=== PATIENT | male | born 1975 | race Caucasian/White ===

== ENCOUNTER 2016-10-23 19:55 | Emergency (ER) | payer MEDICARE, OTHER ==
[~2016-10-23] VITALS: Ht 188 cm; Wt 84.1 kg
[~2016-10-23 19:55] MED LIST: DIVA500T52 PO; QUET50XR PO
[2016-10-23] MEDS ORDERED: CEPHALEXIN MONOHYDRATE 500 MG CAPSULE PO ONE (20:30)
[2016-10-23] MEDS ORDERED: POVIDONE-IODINE 15 ML SOLUTION UD TP ONE (20:30)
[2016-10-23 21:22] VITALS: BP 134/85
== END 2016-10-23 21:56 | disposition home or self-care (01) ==
LOC: EMS 19:57
DX: L08.9 Local infection of the skin and subcutaneous tissue, unspecified (principal); F31.9 Bipolar disorder, unspecified; I10 Essential (primary) hypertension; F20.9 Schizophrenia, unspecified
CPT/HCPCS: 99283

== ENCOUNTER 2016-10-30 10:32 | Emergency (ER) | payer MEDICARE, OTHER ==
[~2016-10-30] VITALS: Ht 182.9 cm; Wt 75.0 kg
[~2016-10-30 10:32] MED LIST changes: -QUET50XR PO
[2016-10-30] MEDS ORDERED: ANTIBIOTIC PO (11:05)
[2016-10-30 14:35] LABS: BASOPHILS % (AUTO) 1.2 % (0.0-2.0); EOSINOPHILS % (AUTO) 3.1 % (1.0-6.0); HEMOGLOBIN 13.1 g/dL (13.5-17.5); LYMPHOCYTES # (AUTO) 1.3 K/uL (1.0-4.8); MEAN CORPUSCULAR HGB CONC 32.7 G/dL (31.0-37.0); MEAN CORPUSCULAR VOLUME 98 fL (80-100); MONOCYTES # (AUTO) 0.4 K/uL (0.1-1.0); MONOCYTES % (AUTO) 5.8 % (2.0-9.0); NEUTROPHILS # (AUTO) 5.4 K/uL (1.8-7.7); NEUTROPHILS % (AUTO) 72.9 % (40.0-70.0); PLATELET COUNT (AUTO) 323 K/uL (150-450); RED BLOOD CELL COUNT(AUTO) 4.09 MIL/uL (4.50-5.90); RED CELL DISTRIBUTION WIDTH 13.9 % (11.5-14.5); WHITE BLOOD COUNT (AUTO) 7.4 K/uL (4.5-11.0)
[2016-10-30] MEDS ORDERED: CefTRIAXone SODIUM 1 GM/VIAL IM ONE (14:45)
[2016-10-30] MEDS ORDERED: LIDOCAINE HCL/PF 1% 2 ML VIAL IM ONE (14:45)
[2016-10-30 15:34] VITALS: BP 130/75
== END 2016-10-30 15:37 | disposition home or self-care (01) ==
LOC: EMS 10:34
DX: L03.115 Cellulitis of right lower limb (principal); L08.9 Local infection of the skin and subcutaneous tissue, unspecified; I10 Essential (primary) hypertension; F17.210 Nicotine dependence, cigarettes, uncomplicated
CPT/HCPCS: 36415; 85025; 93971; 96372; 99285; J0696; J3490

== ENCOUNTER 2016-11-23 09:40 | Inpatient (IN) | payer MEDICARE, MEDICAID ==
[~2016-11-23] VITALS: Ht 188 cm; Wt 74.8 kg
[~2016-11-23 09:40] MED LIST changes: +ANTIBIOTIC PO
[2016-11-23 10:00] VITALS: BP 117/73
[2016-11-23] MEDS ORDERED: ZOLPIDEM TARTRATE 10 MG TABLET PO PRN (11:30)
[2016-11-23 13:19] LABS: BASOPHILS # (AUTO) 0.03 K/uL (0.00-0.20); BASOPHILS % (AUTO) 0.3 % (0.0-2.0); EOSINOPHILS # (AUTO) 0.76 K/uL (0.00-0.70); EOSINOPHILS % (AUTO) 8.19 % (1.0-6.0); HEMATOCRIT 39.9 % (41-53); HEMOGLOBIN 13.4 g/dL (13.5-17.5); LYMPHOCYTES # (AUTO) 1.5 K/uL (1.0-4.8); LYMPHOCYTES % (AUTO) 15.8 % (22.0-44.0); MEAN CORPUSCULAR HEMOGLOBIN 32.4 pg (26.0-34.0); MEAN CORPUSCULAR HGB CONC 33.5 G/dL (31.0-37.0); MEAN CORPUSCULAR VOLUME 97 fL (80-100); MONOCYTES # (AUTO) 0.6 K/uL (0.1-1.0); MONOCYTES % (AUTO) 6.3 % (2.0-9.0); NEUTROPHILS # (AUTO) 6.5 K/uL (1.8-7.7); NEUTROPHILS % (AUTO) 69.4 % (40.0-70.0); PLATELET COUNT (AUTO) 307 K/uL (150-450); RED BLOOD CELL COUNT(AUTO) 4.11 MIL/uL (4.50-5.90); RED CELL DISTRIBUTION WIDTH 13.7 % (11.5-14.5); WHITE BLOOD COUNT (AUTO) 9.3 K/uL (4.5-11.0)
[2016-11-23 13:31] LABS: ANION GAP 9 mmol/L (8-16); CALCIUM, TOTAL 8.9 mg/dL (8.8-10.5); CARBON DIOXIDE 30 mmol/L (22-29); CHLORIDE 105 mmol/L (98-107); CREATININE 0.94 mg/dL (0.60-1.30); GLOMERULAR FILTR. RATE CALC > 60 mL/min (>60); POTASSIUM 3.7 mmol/L (3.5-5.1); SODIUM SERUM 144 mmol/L (136-145); UREA NITROGEN, BLOOD 12 mg/dL (7-18)
[2016-11-23 13:36] LABS: ALANINE AMINOTRANSFERASE 26 U/L (12-78); ALBUMIN 3.5 g/dL (3.4-5.0); ASPARTATE AMINOTRANSFERASE 19 U/L (15-37); BILIRUBIN,TOTAL 0.5 mg/dL (0.1-1.0); TOTAL PROTEIN, SERUM 7.6 g/dL (6.4-8.2)
[2016-11-23] MEDS ORDERED: PERMETHRIN 5% 60 GM CREAM TP ONE (17:00)
[2016-11-23 18:19] VITALS: BP 117/81
[2016-11-23] MEDS: DIVALPROEX SODIUM 500 MG DR TABLET PO SCH (21:00)
[2016-11-24 08:05] VITALS: BP 138/80
[2016-11-24] MEDS ORDERED: CloNIDine HCL 0.1 MG TABLET PO PRN (09:45)
[2016-11-24] MEDS ORDERED: BENZOCAINE/MENTHOL LOZENGE [8 LOZENGES/PACKET] MM PRN (09:45)
[2016-11-24] MEDS ORDERED: ACETAMINOPHEN 325 MG TABLET PO PRN (09:45)
[2016-11-24] MEDS ORDERED: IBUPROFEN 600 MG TABLET PO PRN (09:45)
[2016-11-24] MEDS ORDERED: MAGNESIUM HYDROXIDE SUSPENSION 30 ML UDCUP PO PRN (09:45)
[2016-11-24] MEDS ORDERED: ONDANSETRON HCL 4 MG TABLET PO PRN (09:45)
[2016-11-24] MEDS ORDERED: BACITRACIN 28.4 GM OINTMENT TP PRN (09:45)
[2016-11-24] MEDS ORDERED: ALBUTEROL SULFATE HFA 90 MCG/PUFF 8 GM INHALER IH PRN (09:45)
[2016-11-24] MEDS ORDERED: PETROLATUM,WHITE 71 GM JELLY TP PRN (09:45)
[2016-11-24] MEDS ORDERED: MAG HYDROX/AL HYDROX/SIMETH ES 30 ML SUSPENSION UDCUP PO PRN (09:45)
[2016-11-24] MEDS ORDERED: LOPERAMIDE HCL 2 MG CAPSULE PO PRN (09:45)
[2016-11-24] MEDS: CEPHALEXIN MONOHYDRATE 500 MG CAPSULE PO SCH ×3 (10:00→16:55)
[2016-11-24] MEDS: BACITRACIN 28.4 GM OINTMENT TP SCH ×2 (13:00→16:54)
[2016-11-24] MEDS: MAGNESIUM SULFATE 454 GM BOX TP SCH (13:00)
[2016-11-24 16:40] VITALS: BP 132/76
[2016-11-24] MEDS: DIVALPROEX SODIUM 500 MG DR TABLET PO SCH (20:40)
[2016-11-24] MEDS: TERBINAFINE HCL 1% 30 GM CREAM TP SCH (22:11)
[2016-11-25 07:03] LABS: CHOL/HDL RATIO 2.3 (4.2-7.3); THYROID STIMULATING HORMONE 0.84 uIU/mL (0.36-3.74)
[2016-11-25 08:00] VITALS: BP 145/82
[2016-11-25] MEDS: DOCUSATE SODIUM 100 MG CAPSULE PO SCH (08:03)
[2016-11-25] MEDS: OMEPRAZOLE 20 MG CAPSULE PO SCH (08:04)
[2016-11-25] MEDS: CEPHALEXIN MONOHYDRATE 500 MG CAPSULE PO SCH ×3 (08:04→17:09)
[2016-11-25] MEDS: BACITRACIN 28.4 GM OINTMENT TP SCH ×2 (08:04→17:10)
[2016-11-25] MEDS: TERBINAFINE HCL 1% 30 GM CREAM TP SCH ×2 (08:05→17:09)
[2016-11-25] MEDS: MAGNESIUM SULFATE 454 GM BOX TP SCH (08:05)
[2016-11-25 17:00] VITALS: BP 126/74
[2016-11-25] MEDS: DIVALPROEX SODIUM 500 MG DR TABLET PO SCH (21:20)
[2016-11-26] MEDS: CEPHALEXIN MONOHYDRATE 500 MG CAPSULE PO SCH ×3 (08:39→17:25)
[2016-11-26] MEDS: OMEPRAZOLE 20 MG CAPSULE PO SCH (08:39)
[2016-11-26] MEDS: MAGNESIUM SULFATE 454 GM BOX TP SCH ×2 (08:39→09:00)
[2016-11-26] MEDS: BACITRACIN 28.4 GM OINTMENT TP SCH ×2 (08:39→17:26)
[2016-11-26] MEDS: DOCUSATE SODIUM 100 MG CAPSULE PO SCH (08:39)
[2016-11-26] MEDS: TERBINAFINE HCL 1% 30 GM CREAM TP SCH ×2 (08:40→17:25)
[2016-11-26 09:22] VITALS: BP 134/61
[2016-11-26 11:58] LABS: HEPATITIS Bs ANTIGEN SCREEN P Negative (Negative); HEPATITIS C AB SCREEN <0.1 s/co ratio (0.0-0.9)
[2016-11-26] MEDS: HALOPERIDOL 5 MG TABLET PO PRN (17:34)
[2016-11-26] MEDS: DIVALPROEX SODIUM 500 MG DR TABLET PO SCH (20:46)
[2016-11-26] MEDS: LORazepam 2 MG TABLET PO PRN ×2 (21:03→21:26)
[2016-11-27 08:00] VITALS: BP 112/82
[2016-11-27] MEDS: MAGNESIUM SULFATE 454 GM BOX TP SCH (09:00)
[2016-11-27] MEDS: CEPHALEXIN MONOHYDRATE 500 MG CAPSULE PO SCH ×3 (09:09→16:58)
[2016-11-27] MEDS: DOCUSATE SODIUM 100 MG CAPSULE PO SCH (09:09)
[2016-11-27] MEDS: OMEPRAZOLE 20 MG CAPSULE PO SCH (09:09)
[2016-11-27] MEDS: TERBINAFINE HCL 1% 30 GM CREAM TP SCH ×2 (09:10→16:59)
[2016-11-27] MEDS: BACITRACIN 28.4 GM OINTMENT TP SCH ×2 (09:10→16:59)
[2016-11-27] MEDS: HALOPERIDOL 5 MG TABLET PO PRN (16:58)
[2016-11-27 18:13] VITALS: BP 136/77
[2016-11-27] MEDS: DIVALPROEX SODIUM 500 MG DR TABLET PO SCH (20:43)
[2016-11-27] MEDS: LORazepam 2 MG TABLET PO PRN (20:56)
[2016-11-28] MEDS: OMEPRAZOLE 20 MG CAPSULE PO SCH (08:35)
[2016-11-28] MEDS: DOCUSATE SODIUM 100 MG CAPSULE PO SCH (08:35)
[2016-11-28] MEDS: CEPHALEXIN MONOHYDRATE 500 MG CAPSULE PO SCH ×3 (08:35→17:15)
[2016-11-28] MEDS: MAGNESIUM SULFATE 454 GM BOX TP SCH (08:36)
[2016-11-28] MEDS: TERBINAFINE HCL 1% 30 GM CREAM TP SCH ×2 (08:36→17:16)
[2016-11-28] MEDS: BACITRACIN 28.4 GM OINTMENT TP SCH ×2 (08:36→17:15)
[2016-11-28 10:36] VITALS: BP 151/81
[2016-11-28 16:57] VITALS: BP 120/81
[2016-11-28] MEDS: DIVALPROEX SODIUM 500 MG DR TABLET PO SCH (20:46)
[2016-11-29] MEDS: DOCUSATE SODIUM 100 MG CAPSULE PO SCH (08:50)
[2016-11-29] MEDS: BACITRACIN 28.4 GM OINTMENT TP SCH (08:50)
[2016-11-29] MEDS: TERBINAFINE HCL 1% 30 GM CREAM TP SCH (08:50)
[2016-11-29] MEDS: OMEPRAZOLE 20 MG CAPSULE PO SCH (08:50)
[2016-11-29] MEDS: MAGNESIUM SULFATE 454 GM BOX TP SCH (08:50)
[2016-11-29] MEDS: CEPHALEXIN MONOHYDRATE 500 MG CAPSULE PO SCH (08:51)
[2016-11-29] MEDS ORDERED: CHOLECALCIFEROL (VIT D3) 1,000 UNITS TABLET PO SCH (09:00)
[2016-11-29] MEDS ORDERED: BACI3.5O22 TP (09:27)
[2016-11-29] MEDS ORDERED: CEPH500 PO (09:27)
[2016-11-29] MEDS ORDERED: VITAD1000 PO (09:29)
[2016-11-29] MEDS ORDERED: OMEP20 PO (09:29)
[2016-11-29] MEDS ORDERED: EPSOT TP (09:29)
[2016-11-29] MEDS ORDERED: DSS100 PO (09:29)
[2016-11-29] MEDS ORDERED: TERB15CR TP (09:31)
== END 2016-11-29 11:45 | disposition home or self-care (01) | DRG 885 ==
LOC: EDSTATUS 09:40 → BV PSY EVL 11:43 → 3EX 16:07
PROVIDERS: ADMIT Psychiatry & Neurology Psychiatry; ATTEND Psychiatry & Neurology Psychiatry
DX: F25.9 Schizoaffective disorder, unspecified (principal); R45.851 Suicidal ideations; E44.0 Moderate protein-calorie malnutrition; L03.119 Cellulitis of unspecified part of limb; F31.9 Bipolar disorder, unspecified; I10 Essential (primary) hypertension; F17.210 Nicotine dependence, cigarettes, uncomplicated; L30.9 Dermatitis, unspecified; B35.3 Tinea pedis; K59.00 Constipation, unspecified; G47.00 Insomnia, unspecified; E55.9 Vitamin D deficiency, unspecified; Z71.6 Tobacco abuse counseling; Z81.8 Family history of other mental and behavioral disorders; Z59.0 Homelessness; Z91.5 Personal history of self-harm; M79.89 Other specified soft tissue disorders; Z68.21 Body mass index [BMI] 21.0-21.9, adult
CPT/HCPCS: 80074; 82306; 84443; 93970; 99285; G0480

== ENCOUNTER 2016-12-17 15:58 | Inpatient (IN) | payer MEDICARE, MEDICAID ==
[~2016-12-17] VITALS: Ht 188 cm; Wt 76.7 kg
[~2016-12-17 15:58] MED LIST changes: -ANTIBIOTIC PO; +BACI3.5O22 TP; +CEPH500 PO; +DSS100 PO; +EPSOT TP; +OMEP20 PO; +TERB15CR TP; +VITAD1000 PO
[2016-12-17 16:22] VITALS: BP 132/78
[2016-12-17] MEDS ORDERED: LORazepam 2 MG TABLET PO PRN (17:45)
[2016-12-17] MEDS ORDERED: HALOPERIDOL 5 MG TABLET PO PRN (17:45)
[2016-12-17] MEDS ORDERED: ZOLPIDEM TARTRATE 10 MG TABLET PO PRN (17:45)
[2016-12-17 18:14] VITALS: BP 135/73
[2016-12-18 00:15] VITALS: BP 117/69
[2016-12-18 07:59] LABS: BASOPHILS # (AUTO) 0.03 K/uL (0.00-0.20); BASOPHILS % (AUTO) 0.4 % (0.0-2.0); EOSINOPHILS % (AUTO) 2.18 % (1.0-6.0); HEMATOCRIT 38.4 % (41-53); HEMOGLOBIN 12.4 g/dL (13.5-17.5); LYMPHOCYTES # (AUTO) 1.1 K/uL (1.0-4.8); LYMPHOCYTES % (AUTO) 12.1 % (22.0-44.0); MEAN CORPUSCULAR HEMOGLOBIN 31.9 pg (26.0-34.0); MEAN CORPUSCULAR HGB CONC 32.4 G/dL (31.0-37.0); MEAN CORPUSCULAR VOLUME 99 fL (80-100); MONOCYTES # (AUTO) 0.6 K/uL (0.1-1.0); MONOCYTES % (AUTO) 6.2 % (2.0-9.0); NEUTROPHILS # (AUTO) 7.4 K/uL (1.8-7.7); NEUTROPHILS % (AUTO) 79.1 % (40.0-70.0); PLATELET COUNT (AUTO) 311 K/uL (150-450); RED CELL DISTRIBUTION WIDTH 13.5 % (11.5-14.5); WHITE BLOOD COUNT (AUTO) 9.4 K/uL (4.5-11.0)
[2016-12-18 08:33] LABS: ALANINE AMINOTRANSFERASE 21 U/L (12-78); ALBUMIN 3.2 g/dL (3.4-5.0); ANION GAP 5 mmol/L (8-16); ASPARTATE AMINOTRANSFERASE 14 U/L (15-37); BILIRUBIN,TOTAL 0.4 mg/dL (0.1-1.0); CALCIUM, TOTAL 8.7 mg/dL (8.8-10.5); CARBON DIOXIDE 29 mmol/L (22-29); CHLORIDE 107 mmol/L (98-107); CHOL/HDL RATIO 2.3 (4.2-7.3); CREATININE 0.96 mg/dL (0.60-1.30); GLOMERULAR FILTR. RATE CALC > 60 mL/min (>60); POTASSIUM 4.6 mmol/L (3.5-5.1); SODIUM SERUM 141 mmol/L (136-145); THYROID STIMULATING HORMONE 0.72 uIU/mL (0.36-3.74); TOTAL PROTEIN, SERUM 6.8 g/dL (6.4-8.2); UREA NITROGEN, BLOOD 12 mg/dL (7-18)
[2016-12-18 08:36] LABS: VALPROIC ACID < 3 mcg/mL (50-100)
[2016-12-18] MEDS ORDERED: BACITRACIN 28.4 GM OINTMENT TP PRN (09:30)
[2016-12-18] MEDS ORDERED: ONDANSETRON HCL 4 MG TABLET PO PRN (09:30)
[2016-12-18] MEDS ORDERED: ACETAMINOPHEN 325 MG TABLET PO PRN (09:30)
[2016-12-18] MEDS ORDERED: ALBUTEROL SULFATE HFA 90 MCG/PUFF 8 GM INHALER IH PRN (09:30)
[2016-12-18] MEDS ORDERED: CloNIDine HCL 0.1 MG TABLET PO PRN (09:30)
[2016-12-18] MEDS ORDERED: PETROLATUM,WHITE 71 GM JELLY TP PRN (09:30)
[2016-12-18] MEDS: MUPIROCIN CALCIUM 2% 15 GM CREAM TP SCH ×2 (09:30→16:39)
[2016-12-18] MEDS ORDERED: LOPERAMIDE HCL 2 MG CAPSULE PO PRN (09:30)
[2016-12-18] MEDS ORDERED: BENZOCAINE/MENTHOL LOZENGE MM PRN (09:30)
[2016-12-18] MEDS ORDERED: MAGNESIUM HYDROXIDE SUSPENSION 30 ML UDCUP PO PRN (09:30)
[2016-12-18] MEDS ORDERED: MAG HYDROX/AL HYDROX/SIMETH ES 30 ML SUSPENSION UDCUP PO PRN (09:30)
[2016-12-18] MEDS ORDERED: IBUPROFEN 600 MG TABLET PO PRN (09:30)
[2016-12-18] MEDS: CHOLECALCIFEROL (VIT D3) 1,000 UNITS TABLET PO SCH (10:01)
[2016-12-18] MEDS: OMEPRAZOLE 20 MG CAPSULE PO SCH (10:01)
[2016-12-18] MEDS: DOCUSATE SODIUM 100 MG CAPSULE PO SCH (10:01)
[2016-12-18] MEDS: TERBINAFINE HCL 1% 30 GM CREAM TP SCH ×2 (10:02→16:40)
[2016-12-18] MEDS: NICOTINE 21 MG/24 HOUR PATCH TD SCH (10:02)
[2016-12-18] MEDS: CEPHALEXIN MONOHYDRATE 500 MG CAPSULE PO SCH ×3 (10:07→16:38)
[2016-12-18 16:26] VITALS: BP 111/65
[2016-12-18] MEDS: LITHIUM CARBONATE 300 MG CAPSULE PO SCH (17:10)
[2016-12-18] MEDS: DIVALPROEX SODIUM 500 MG DR TABLET PO SCH (17:10)
[2016-12-19 06:43] VITALS: BP 110/70
[2016-12-19 08:37] VITALS: BP 109/60
[2016-12-19] MEDS: NICOTINE 21 MG/24 HOUR PATCH TD SCH (09:08)
[2016-12-19] MEDS: MULTIVITAMINS WITH MINERALS, THERAPEUTIC TABLET PO SCH (09:08)
[2016-12-19] MEDS: MUPIROCIN CALCIUM 2% 15 GM CREAM TP SCH ×2 (09:09→16:40)
[2016-12-19] MEDS: OMEPRAZOLE 20 MG CAPSULE PO SCH (09:09)
[2016-12-19] MEDS: CEPHALEXIN MONOHYDRATE 500 MG CAPSULE PO SCH ×3 (09:09→16:41)
[2016-12-19] MEDS: CHOLECALCIFEROL (VIT D3) 1,000 UNITS TABLET PO SCH (09:09)
[2016-12-19] MEDS: LITHIUM CARBONATE 300 MG CAPSULE PO SCH ×2 (09:09→16:41)
[2016-12-19] MEDS: DIVALPROEX SODIUM 500 MG DR TABLET PO SCH ×2 (09:09→16:41)
[2016-12-19] MEDS: DOCUSATE SODIUM 100 MG CAPSULE PO SCH (09:09)
[2016-12-19] MEDS: TERBINAFINE HCL 1% 30 GM CREAM TP SCH ×2 (09:10→16:41)
[2016-12-19 16:49] VITALS: BP 113/68
[2016-12-20 01:01] VITALS: BP 101/68
[2016-12-20 08:27] VITALS: BP 104/61
[2016-12-20] MEDS: CHOLECALCIFEROL (VIT D3) 1,000 UNITS TABLET PO SCH (09:17)
[2016-12-20] MEDS: OMEPRAZOLE 20 MG CAPSULE PO SCH (09:17)
[2016-12-20] MEDS: MULTIVITAMINS WITH MINERALS, THERAPEUTIC TABLET PO SCH (09:17)
[2016-12-20] MEDS: CEPHALEXIN MONOHYDRATE 500 MG CAPSULE PO SCH ×3 (09:17→16:46)
[2016-12-20] MEDS: DOCUSATE SODIUM 100 MG CAPSULE PO SCH (09:17)
[2016-12-20] MEDS: LITHIUM CARBONATE 300 MG CAPSULE PO SCH ×2 (09:17→16:46)
[2016-12-20] MEDS: MUPIROCIN CALCIUM 2% 15 GM CREAM TP SCH ×2 (09:18→16:47)
[2016-12-20] MEDS: DIVALPROEX SODIUM 500 MG DR TABLET PO SCH ×2 (09:18→16:46)
[2016-12-20] MEDS: TERBINAFINE HCL 1% 30 GM CREAM TP SCH ×2 (09:18→16:47)
[2016-12-20] MEDS: NICOTINE 21 MG/24 HOUR PATCH TD SCH (09:18)
[2016-12-20 16:09] VITALS: BP 121/73
[2016-12-21 06:03] VITALS: BP 107/61
[2016-12-21] MEDS: FERROUS SULFATE 325 MG EC TABLET PO SCH ×2 (06:06→16:46)
[2016-12-21 08:12] VITALS: BP 113/60
[2016-12-21] MEDS: CHOLECALCIFEROL (VIT D3) 1,000 UNITS TABLET PO SCH (09:06)
[2016-12-21] MEDS: MULTIVITAMINS WITH MINERALS, THERAPEUTIC TABLET PO SCH (09:06)
[2016-12-21] MEDS: LITHIUM CARBONATE 300 MG CAPSULE PO SCH ×2 (09:06→16:45)
[2016-12-21] MEDS: DIVALPROEX SODIUM 500 MG DR TABLET PO SCH ×2 (09:06→16:48)
[2016-12-21] MEDS: OMEPRAZOLE 20 MG CAPSULE PO SCH (09:06)
[2016-12-21] MEDS: DOCUSATE SODIUM 100 MG CAPSULE PO SCH (09:06)
[2016-12-21] MEDS: CEPHALEXIN MONOHYDRATE 500 MG CAPSULE PO SCH ×3 (09:06→16:45)
[2016-12-21] MEDS: NICOTINE 21 MG/24 HOUR PATCH TD SCH (09:07)
[2016-12-21] MEDS: TERBINAFINE HCL 1% 30 GM CREAM TP SCH ×2 (09:07→16:47)
[2016-12-21] MEDS: MUPIROCIN CALCIUM 2% 15 GM CREAM TP SCH ×2 (09:26→16:46)
[2016-12-21 16:16] VITALS: BP 115/77
[2016-12-22 00:41] VITALS: BP 112/78
[2016-12-22] MEDS: FERROUS SULFATE 325 MG EC TABLET PO SCH ×2 (06:34→16:47)
[2016-12-22 08:23] LABS: LITHIUM 0.33 mmol/L (0.60-1.20)
[2016-12-22 08:26] VITALS: BP 118/69
[2016-12-22] MEDS: MULTIVITAMINS WITH MINERALS, THERAPEUTIC TABLET PO SCH (09:38)
[2016-12-22] MEDS: CHOLECALCIFEROL (VIT D3) 1,000 UNITS TABLET PO SCH (09:38)
[2016-12-22] MEDS: CEPHALEXIN MONOHYDRATE 500 MG CAPSULE PO SCH ×3 (09:39→16:47)
[2016-12-22] MEDS: NICOTINE 21 MG/24 HOUR PATCH TD SCH (09:39)
[2016-12-22] MEDS: LITHIUM CARBONATE 300 MG CAPSULE PO SCH ×2 (09:39→16:47)
[2016-12-22] MEDS: OMEPRAZOLE 20 MG CAPSULE PO SCH (09:39)
[2016-12-22] MEDS: DIVALPROEX SODIUM 500 MG DR TABLET PO SCH ×2 (09:39→16:47)
[2016-12-22] MEDS: DOCUSATE SODIUM 100 MG CAPSULE PO SCH (09:39)
[2016-12-22] MEDS: TERBINAFINE HCL 1% 30 GM CREAM TP SCH ×2 (09:40→16:47)
[2016-12-22] MEDS: MUPIROCIN CALCIUM 2% 15 GM CREAM TP SCH ×2 (09:40→16:47)
[2016-12-22 16:08] VITALS: BP 121/86
[2016-12-23 00:59] VITALS: BP 108/62
[2016-12-23] MEDS: FERROUS SULFATE 325 MG EC TABLET PO SCH ×2 (06:45→16:38)
[2016-12-23 08:18] VITALS: BP 120/88
[2016-12-23] MEDS: CHOLECALCIFEROL (VIT D3) 1,000 UNITS TABLET PO SCH (08:53)
[2016-12-23] MEDS: NICOTINE 21 MG/24 HOUR PATCH TD SCH (08:53)
[2016-12-23] MEDS: DIVALPROEX SODIUM 500 MG DR TABLET PO SCH ×2 (08:53→16:38)
[2016-12-23] MEDS: DOCUSATE SODIUM 100 MG CAPSULE PO SCH (08:53)
[2016-12-23] MEDS: OMEPRAZOLE 20 MG CAPSULE PO SCH (08:53)
[2016-12-23] MEDS: MULTIVITAMINS WITH MINERALS, THERAPEUTIC TABLET PO SCH (08:53)
[2016-12-23] MEDS: CEPHALEXIN MONOHYDRATE 500 MG CAPSULE PO SCH ×3 (08:53→16:38)
[2016-12-23] MEDS: LITHIUM CARBONATE 300 MG CAPSULE PO SCH ×2 (08:53→16:38)
[2016-12-23] MEDS: TERBINAFINE HCL 1% 30 GM CREAM TP SCH ×2 (09:06→17:45)
[2016-12-23] MEDS: MUPIROCIN CALCIUM 2% 15 GM CREAM TP SCH ×2 (09:07→17:45)
[2016-12-23 16:07] VITALS: BP 115/73
[2016-12-24 00:10] VITALS: BP 115/70
[2016-12-24] MEDS: FERROUS SULFATE 325 MG EC TABLET PO SCH ×2 (06:32→17:10)
[2016-12-24] MEDS: DOCUSATE SODIUM 100 MG CAPSULE PO SCH (10:14)
[2016-12-24] MEDS: NICOTINE 21 MG/24 HOUR PATCH TD SCH (10:14)
[2016-12-24] MEDS: MULTIVITAMINS WITH MINERALS, THERAPEUTIC TABLET PO SCH (10:15)
[2016-12-24] MEDS: CHOLECALCIFEROL (VIT D3) 1,000 UNITS TABLET PO SCH (10:15)
[2016-12-24] MEDS: OMEPRAZOLE 20 MG CAPSULE PO SCH (10:15)
[2016-12-24] MEDS: LITHIUM CARBONATE 300 MG CAPSULE PO SCH ×2 (10:15→17:09)
[2016-12-24] MEDS: DIVALPROEX SODIUM 500 MG DR TABLET PO SCH ×2 (10:15→17:09)
[2016-12-24] MEDS: CEPHALEXIN MONOHYDRATE 500 MG CAPSULE PO SCH ×3 (10:16→17:10)
[2016-12-24] MEDS: MUPIROCIN CALCIUM 2% 15 GM CREAM TP SCH ×2 (10:16→17:10)
[2016-12-24] MEDS: TERBINAFINE HCL 1% 30 GM CREAM TP SCH ×2 (10:16→17:10)
[2016-12-24 16:12] VITALS: BP 117/73
[2016-12-25] MEDS: FERROUS SULFATE 325 MG EC TABLET PO SCH ×2 (07:00→17:07)
[2016-12-25] MEDS: DOCUSATE SODIUM 100 MG CAPSULE PO SCH (09:15)
[2016-12-25] MEDS: DIVALPROEX SODIUM 500 MG DR TABLET PO SCH ×2 (09:15→17:07)
[2016-12-25] MEDS: OMEPRAZOLE 20 MG CAPSULE PO SCH (09:15)
[2016-12-25] MEDS: CEPHALEXIN MONOHYDRATE 500 MG CAPSULE PO SCH ×3 (09:15→17:07)
[2016-12-25] MEDS: CHOLECALCIFEROL (VIT D3) 1,000 UNITS TABLET PO SCH (09:16)
[2016-12-25] MEDS: LITHIUM CARBONATE 300 MG CAPSULE PO SCH ×2 (09:16→17:07)
[2016-12-25] MEDS: NICOTINE 21 MG/24 HOUR PATCH TD SCH (09:16)
[2016-12-25] MEDS: MULTIVITAMINS WITH MINERALS, THERAPEUTIC TABLET PO SCH (09:16)
[2016-12-25] MEDS: MUPIROCIN CALCIUM 2% 15 GM CREAM TP SCH ×2 (09:18→17:08)
[2016-12-25] MEDS: TERBINAFINE HCL 1% 30 GM CREAM TP SCH ×2 (09:19→17:08)
[2016-12-25 16:25] VITALS: BP 110/82
[2016-12-26] MEDS: FERROUS SULFATE 325 MG EC TABLET PO SCH ×2 (07:03→17:46)
[2016-12-26] MEDS: CEPHALEXIN MONOHYDRATE 500 MG CAPSULE PO SCH ×3 (08:36→17:46)
[2016-12-26] MEDS: NICOTINE 21 MG/24 HOUR PATCH TD SCH (08:36)
[2016-12-26] MEDS: DIVALPROEX SODIUM 500 MG DR TABLET PO SCH ×2 (08:36→17:45)
[2016-12-26] MEDS: LITHIUM CARBONATE 300 MG CAPSULE PO SCH ×2 (08:36→17:46)
[2016-12-26] MEDS: MULTIVITAMINS WITH MINERALS, THERAPEUTIC TABLET PO SCH (08:36)
[2016-12-26] MEDS: OMEPRAZOLE 20 MG CAPSULE PO SCH (08:36)
[2016-12-26] MEDS: CHOLECALCIFEROL (VIT D3) 1,000 UNITS TABLET PO SCH (08:36)
[2016-12-26] MEDS: DOCUSATE SODIUM 100 MG CAPSULE PO SCH (08:36)
[2016-12-26] MEDS: MUPIROCIN CALCIUM 2% 15 GM CREAM TP SCH ×2 (09:47→17:46)
[2016-12-26] MEDS: TERBINAFINE HCL 1% 30 GM CREAM TP SCH ×2 (09:47→17:46)
[2016-12-26 16:11] VITALS: BP 110/73
[2016-12-27] MEDS: FERROUS SULFATE 325 MG EC TABLET PO SCH ×2 (06:22→17:08)
[2016-12-27 08:20] VITALS: BP 103/65
[2016-12-27] MEDS: DIVALPROEX SODIUM 500 MG DR TABLET PO SCH ×2 (09:16→17:08)
[2016-12-27] MEDS: CEPHALEXIN MONOHYDRATE 500 MG CAPSULE PO SCH ×3 (09:16→17:08)
[2016-12-27] MEDS: OMEPRAZOLE 20 MG CAPSULE PO SCH (09:16)
[2016-12-27] MEDS: MULTIVITAMINS WITH MINERALS, THERAPEUTIC TABLET PO SCH (09:16)
[2016-12-27] MEDS: CHOLECALCIFEROL (VIT D3) 1,000 UNITS TABLET PO SCH (09:16)
[2016-12-27] MEDS: NICOTINE 21 MG/24 HOUR PATCH TD SCH (09:16)
[2016-12-27] MEDS: DOCUSATE SODIUM 100 MG CAPSULE PO SCH (09:16)
[2016-12-27] MEDS: LITHIUM CARBONATE 300 MG CAPSULE PO SCH ×2 (09:16→17:08)
[2016-12-27] MEDS: TERBINAFINE HCL 1% 30 GM CREAM TP SCH ×2 (09:17→17:09)
[2016-12-27] MEDS: MUPIROCIN CALCIUM 2% 15 GM CREAM TP SCH ×2 (09:17→17:09)
[2016-12-27 16:09] VITALS: BP 115/78
[2016-12-28] MEDS: FERROUS SULFATE 325 MG EC TABLET PO SCH ×2 (06:23→16:35)
[2016-12-28 08:21] VITALS: BP 131/72
[2016-12-28] MEDS: NICOTINE 21 MG/24 HOUR PATCH TD SCH (09:05)
[2016-12-28] MEDS: CEPHALEXIN MONOHYDRATE 500 MG CAPSULE PO SCH (09:05)
[2016-12-28] MEDS: DIVALPROEX SODIUM 500 MG DR TABLET PO SCH ×2 (09:05→16:43)
[2016-12-28] MEDS: DOCUSATE SODIUM 100 MG CAPSULE PO SCH (09:05)
[2016-12-28] MEDS: MULTIVITAMINS WITH MINERALS, THERAPEUTIC TABLET PO SCH (09:05)
[2016-12-28] MEDS: CHOLECALCIFEROL (VIT D3) 1,000 UNITS TABLET PO SCH (09:05)
[2016-12-28] MEDS: LITHIUM CARBONATE 300 MG CAPSULE PO SCH ×2 (09:05→16:35)
[2016-12-28] MEDS: OMEPRAZOLE 20 MG CAPSULE PO SCH (09:05)
[2016-12-28] MEDS: MUPIROCIN CALCIUM 2% 15 GM CREAM TP SCH (09:07)
[2016-12-28] MEDS: TERBINAFINE HCL 1% 30 GM CREAM TP SCH ×2 (09:07→17:19)
[2016-12-28 17:58] VITALS: BP 115/79
[2016-12-29] VITALS: BP 115/71
[2016-12-29] MEDS: FERROUS SULFATE 325 MG EC TABLET PO SCH (06:55)
[2016-12-29 08:07] VITALS: BP 117/69
[2016-12-29] MEDS: CHOLECALCIFEROL (VIT D3) 1,000 UNITS TABLET PO SCH (08:43)
[2016-12-29] MEDS: DIVALPROEX SODIUM 500 MG DR TABLET PO SCH (08:43)
[2016-12-29] MEDS: OMEPRAZOLE 20 MG CAPSULE PO SCH (08:43)
[2016-12-29] MEDS: LITHIUM CARBONATE 300 MG CAPSULE PO SCH (08:43)
[2016-12-29] MEDS: DOCUSATE SODIUM 100 MG CAPSULE PO SCH (08:44)
[2016-12-29] MEDS: MULTIVITAMINS WITH MINERALS, THERAPEUTIC TABLET PO SCH (08:44)
[2016-12-29] MEDS: NICOTINE 21 MG/24 HOUR PATCH TD SCH (08:44)
[2016-12-29] MEDS ORDERED: MUPIROCIN CALCIUM 2% 15 GM CREAM TP SCH (09:00)
[2016-12-29] MEDS: TERBINAFINE HCL 1% 30 GM CREAM TP SCH (09:24)
[2016-12-29] MEDS ORDERED: LITH300C3 PO (09:39)
[2016-12-29] MEDS ORDERED: DIVA500T35 PO (09:40)
== END 2016-12-29 13:30 | disposition home or self-care (01) | DRG 885 ==
LOC: B2X 17:00 → EDSTATUS 17:52 → B2X 12-18 21:03
PROVIDERS: ADMIT Psychiatry & Neurology Psychiatry; ATTEND Psychiatry & Neurology Psychiatry
DX: F20.0 Paranoid schizophrenia (principal); E43 Unspecified severe protein-calorie malnutrition; R45.851 Suicidal ideations; L03.90 Cellulitis, unspecified; E55.9 Vitamin D deficiency, unspecified; K21.9 Gastro-esophageal reflux disease without esophagitis; J44.9 Chronic obstructive pulmonary disease, unspecified; F17.210 Nicotine dependence, cigarettes, uncomplicated; G47.00 Insomnia, unspecified; F31.9 Bipolar disorder, unspecified; D64.9 Anemia, unspecified; F41.9 Anxiety disorder, unspecified; Z59.0 Homelessness; Z71.6 Tobacco abuse counseling; Z68.21 Body mass index [BMI] 21.0-21.9, adult
CPT/HCPCS: 82306; 84439; 84443; 87081

== ENCOUNTER 2017-01-01 13:03 | Inpatient (IN) | payer MEDICARE, MEDICAID ==
[~2017-01-01] VITALS: Ht 188 cm; Wt 81.1 kg
[~2017-01-01 13:03] MED LIST changes: +DIVA500T35 PO; +LITH300C3 PO
[2017-01-01 14:49] VITALS: BP 130/95
[2017-01-01] MEDS ORDERED: HALOPERIDOL 5 MG TABLET PO PRN (15:00)
[2017-01-01] MEDS ORDERED: LORazepam 2 MG TABLET PO PRN (15:00)
[2017-01-01] MEDS ORDERED: ZOLPIDEM TARTRATE 10 MG TABLET PO PRN (15:00)
[2017-01-01 16:00] VITALS: BP 116/70
[2017-01-01] MEDS ORDERED: -PHARMACY VACCINE NOTE- MISC ONE ×2 (16:15)
[2017-01-02 06:28] VITALS: BP 106/64
[2017-01-02 07:46] LABS: BASOPHILS % (AUTO) 0.6 % (0.0-2.0); EOSINOPHILS % (AUTO) 2.8 % (1.0-6.0); HEMATOCRIT 36.5 % (41-53); HEMOGLOBIN 11.8 g/dL (13.5-17.5); LYMPHOCYTES # (AUTO) 1.3 K/uL (1.0-4.8); LYMPHOCYTES % (AUTO) 19.5 % (22.0-44.0); MEAN CORPUSCULAR HEMOGLOBIN 31.4 pg (26.0-34.0); MEAN CORPUSCULAR HGB CONC 32.4 G/dL (31.0-37.0); MEAN CORPUSCULAR VOLUME 97 fL (80-100); MONOCYTES # (AUTO) 0.6 K/uL (0.1-1.0); MONOCYTES % (AUTO) 8.1 % (2.0-9.0); NEUTROPHILS # (AUTO) 4.7 K/uL (1.8-7.7); PLATELET COUNT (AUTO) 281 K/uL (150-450); RED BLOOD CELL COUNT(AUTO) 3.77 MIL/uL (4.50-5.90); RED CELL DISTRIBUTION WIDTH 13.5 % (11.5-14.5); WHITE BLOOD COUNT (AUTO) 6.8 K/uL (4.5-11.0)
[2017-01-02 08:07] VITALS: BP 109/66
[2017-01-02 08:13] LABS: ALANINE AMINOTRANSFERASE 22 U/L (12-78); ALBUMIN 3.2 g/dL (3.4-5.0); ANION GAP 5 mmol/L (8-16); ASPARTATE AMINOTRANSFERASE 23 U/L (15-37); BILIRUBIN,TOTAL 0.3 mg/dL (0.1-1.0); CALCIUM, TOTAL 8.2 mg/dL (8.8-10.5); CARBON DIOXIDE 30 mmol/L (22-29); CHLORIDE 105 mmol/L (98-107); CREATININE 1.04 mg/dL (0.60-1.30); GLOMERULAR FILTR. RATE CALC > 60 mL/min (>60); POTASSIUM 3.8 mmol/L (3.5-5.1); SODIUM SERUM 140 mmol/L (136-145); THYROID STIMULATING HORMONE 1.04 uIU/mL (0.36-3.74); TOTAL PROTEIN, SERUM 6.4 g/dL (6.4-8.2); UREA NITROGEN, BLOOD 13 mg/dL (7-18)
[2017-01-02 08:25] LABS: APPEARANCE,URINE CLEAR (CLEAR); GLUCOSE, URINE (UA) NEGATIVE (NEGATIVE); KETONES,URINE NEGATIVE (NEGATIVE); LEUKOCYTE ESTERASE ,URINE TRACE (NEGATIVE); OCCULT BLOOD,URINE NEGATIVE (NEGATIVE); PH,URINE 5.5 (5.0-8.0); PROTEIN,URINE NEGATIVE (NEGATIVE)
[2017-01-02 08:26] LABS: ADD UA MICROSCOPIC YES
[2017-01-02 08:30] LABS: RBC,URINE 0-2 /HPF (0-2); WBC,URINE 0-2 /HPF (0-5)
[2017-01-02 08:31] LABS: SQUAMOUS EPITHELIAL CELL,UR Rare /LPF (None Seen)
[2017-01-02] MEDS: MUPIROCIN CALCIUM 2% 15 GM CREAM TP SCH ×2 (09:00→17:11)
[2017-01-02] MEDS: NICOTINE 21 MG/24 HOUR PATCH TD SCH (09:40)
[2017-01-02] MEDS: DOCUSATE SODIUM 100 MG CAPSULE PO SCH (09:40)
[2017-01-02] MEDS ORDERED: MAGNESIUM HYDROXIDE SUSPENSION 30 ML UDCUP PO PRN (11:30)
[2017-01-02] MEDS ORDERED: LOPERAMIDE HCL 2 MG CAPSULE PO PRN (11:30)
[2017-01-02] MEDS ORDERED: ONDANSETRON HCL 4 MG TABLET PO PRN (11:30)
[2017-01-02] MEDS ORDERED: BENZOCAINE/MENTHOL LOZENGE MM PRN (11:30)
[2017-01-02] MEDS ORDERED: BACITRACIN 28.4 GM OINTMENT TP PRN (11:30)
[2017-01-02] MEDS ORDERED: CloNIDine HCL 0.1 MG TABLET PO PRN (11:30)
[2017-01-02] MEDS ORDERED: ALBUTEROL SULFATE HFA 90 MCG/PUFF 8 GM INHALER IH PRN (11:30)
[2017-01-02] MEDS ORDERED: ACETAMINOPHEN 325 MG TABLET PO PRN (11:30)
[2017-01-02] MEDS ORDERED: MAG HYDROX/AL HYDROX/SIMETH ES 30 ML SUSPENSION UDCUP PO PRN (11:30)
[2017-01-02] MEDS ORDERED: PETROLATUM,WHITE 71 GM JELLY TP PRN (11:30)
[2017-01-02] MEDS ORDERED: IBUPROFEN 600 MG TABLET PO PRN (11:30)
[2017-01-02 16:07] VITALS: BP 114/72
[2017-01-02] MEDS: DIVALPROEX SODIUM 500 MG DR TABLET PO SCH (17:11)
[2017-01-03 06:20] VITALS: BP 126/76
[2017-01-03] MEDS: DOCUSATE SODIUM 100 MG CAPSULE PO SCH (08:36)
[2017-01-03] MEDS: NICOTINE 21 MG/24 HOUR PATCH TD SCH (08:36)
[2017-01-03] MEDS: DIVALPROEX SODIUM 500 MG DR TABLET PO SCH ×2 (08:36→16:35)
[2017-01-03] MEDS: MUPIROCIN CALCIUM 2% 15 GM CREAM TP SCH ×2 (09:14→16:35)
[2017-01-03 16:26] VITALS: BP 116/77
[2017-01-04] MEDS: DIVALPROEX SODIUM 500 MG DR TABLET PO SCH ×2 (08:38→16:40)
[2017-01-04] MEDS: DOCUSATE SODIUM 100 MG CAPSULE PO SCH (08:38)
[2017-01-04] MEDS: NICOTINE 21 MG/24 HOUR PATCH TD SCH (08:39)
[2017-01-04] MEDS: MUPIROCIN CALCIUM 2% 15 GM CREAM TP SCH ×2 (09:15→16:41)
[2017-01-04 16:13] VITALS: BP 113/61
[2017-01-04] MEDS: LITHIUM CARBONATE 300 MG CAPSULE PO SCH (16:40)
[2017-01-05 08:28] VITALS: BP 120/69
[2017-01-05] MEDS: LITHIUM CARBONATE 300 MG CAPSULE PO SCH (08:29)
[2017-01-05] MEDS: DIVALPROEX SODIUM 500 MG DR TABLET PO SCH (08:29)
[2017-01-05] MEDS: DOCUSATE SODIUM 100 MG CAPSULE PO SCH (08:29)
[2017-01-05] MEDS: NICOTINE 21 MG/24 HOUR PATCH TD SCH (08:31)
[2017-01-05] MEDS: MUPIROCIN CALCIUM 2% 15 GM CREAM TP SCH (08:32)
[2017-01-05] MEDS ORDERED: NICOTINE 21 MG/24 HOUR PATCH TD ONE (10:15)
== END 2017-01-05 13:30 | disposition home or self-care (01) | DRG 885 ==
LOC: B2X 15:09
PROVIDERS: ADMIT Psychiatry & Neurology Psychiatry; ATTEND Psychiatry & Neurology Psychiatry
DX: F25.0 Schizoaffective disorder, bipolar type (principal); E44.0 Moderate protein-calorie malnutrition; L02.415 Cutaneous abscess of right lower limb; J44.9 Chronic obstructive pulmonary disease, unspecified; K21.9 Gastro-esophageal reflux disease without esophagitis; F17.200 Nicotine dependence, unspecified, uncomplicated; F12.90 Cannabis use, unspecified, uncomplicated; K59.00 Constipation, unspecified; G47.00 Insomnia, unspecified; L08.9 Local infection of the skin and subcutaneous tissue, unspecified; Z68.23 Body mass index [BMI] 23.0-23.9, adult; Z88.8 Allergy status to other drugs, medicaments and biological substances; Z71.6 Tobacco abuse counseling; Z59.0 Homelessness; Z56.0 Unemployment, unspecified
CPT/HCPCS: 80307; 84436; 84439; 84443; 86592; 87081

== ENCOUNTER 2017-02-12 13:08 | Inpatient (IN) | payer MEDICARE, MEDICAID ==
[~2017-02-12] VITALS: Ht 182.9 cm; Wt 78.9 kg
[~2017-02-12 13:08] MED LIST changes: -BACI3.5O22 TP; -CEPH500 PO; -DIVA500T52 PO; -DSS100 PO; -EPSOT TP; -OMEP20 PO; -TERB15CR TP; -VITAD1000 PO
[2017-02-12 16:05] VITALS: BP 118/73
[2017-02-12] MEDS ORDERED: HALOPERIDOL 5 MG TABLET PO PRN (16:15)
[2017-02-12] MEDS ORDERED: ZOLPIDEM TARTRATE 10 MG TABLET PO PRN (16:15)
[2017-02-12] MEDS ORDERED: LORazepam 2 MG TABLET PO PRN (16:15)
[2017-02-12 17:03] VITALS: BP 129/75
[2017-02-12] MEDS: LITHIUM CARBONATE 300 MG CAPSULE PO SCH (17:09)
[2017-02-12] MEDS: DIVALPROEX SODIUM 500 MG DR TABLET PO SCH (17:09)
[2017-02-13 07:13] VITALS: BP 125/70
[2017-02-13 08:24] LABS: BASOPHILS % (AUTO) 0.5 % (0.0-2.0); EOSINOPHILS % (AUTO) 3.5 % (1.0-6.0); HEMATOCRIT 39.3 % (41-53); HEMOGLOBIN 13.2 g/dL (13.5-17.5); LYMPHOCYTES # (AUTO) 1.3 K/uL (1.0-4.8); LYMPHOCYTES % (AUTO) 17.7 % (22.0-44.0); MEAN CORPUSCULAR HEMOGLOBIN 32.2 pg (26.0-34.0); MEAN CORPUSCULAR HGB CONC 33.6 G/dL (31.0-37.0); MEAN CORPUSCULAR VOLUME 96 fL (80-100); MONOCYTES # (AUTO) 0.5 K/uL (0.1-1.0); MONOCYTES % (AUTO) 7.3 % (2.0-9.0); NEUTROPHILS # (AUTO) 5.2 K/uL (1.8-7.7); PLATELET COUNT (AUTO) 268 K/uL (150-450); RED BLOOD CELL COUNT(AUTO) 4.09 MIL/uL (4.50-5.90); WHITE BLOOD COUNT (AUTO) 7.3 K/uL (4.5-11.0)
[2017-02-13 08:39] LABS: ALANINE AMINOTRANSFERASE 24 U/L (12-78); ALBUMIN 3.3 g/dL (3.4-5.0); ANION GAP 7 mmol/L (8-16); ASPARTATE AMINOTRANSFERASE 16 U/L (15-37); BILIRUBIN,TOTAL 0.2 mg/dL (0.1-1.0); CALCIUM, TOTAL 8.4 mg/dL (8.8-10.5); CARBON DIOXIDE 27 mmol/L (22-29); CHLORIDE 107 mmol/L (98-107); CREATININE 0.93 mg/dL (0.60-1.30); GLOMERULAR FILTR. RATE CALC > 60 mL/min (>60); POTASSIUM 4.6 mmol/L (3.5-5.1); SODIUM SERUM 141 mmol/L (136-145); TOTAL PROTEIN, SERUM 6.3 g/dL (6.4-8.2); UREA NITROGEN, BLOOD 10 mg/dL (7-18)
[2017-02-13] MEDS: NICOTINE 21 MG/24 HOUR PATCH TD SCH (09:46)
[2017-02-13] MEDS: DIVALPROEX SODIUM 500 MG DR TABLET PO SCH ×2 (09:47→17:48)
[2017-02-13] MEDS: LITHIUM CARBONATE 300 MG CAPSULE PO SCH ×2 (09:47→17:48)
[2017-02-13] MEDS ORDERED: LOPERAMIDE HCL 2 MG CAPSULE PO PRN (10:15)
[2017-02-13] MEDS ORDERED: ACETAMINOPHEN 325 MG TABLET PO PRN (10:15)
[2017-02-13] MEDS ORDERED: BACITRACIN 28.4 GM OINTMENT TP PRN (10:15)
[2017-02-13] MEDS ORDERED: ALBUTEROL SULFATE HFA 90 MCG/PUFF 8 GM INHALER IH PRN (10:15)
[2017-02-13] MEDS ORDERED: CloNIDine HCL 0.1 MG TABLET PO PRN (10:15)
[2017-02-13] MEDS ORDERED: ONDANSETRON HCL 4 MG TABLET PO PRN (10:15)
[2017-02-13] MEDS ORDERED: BENZOCAINE/MENTHOL LOZENGE MM PRN (10:15)
[2017-02-13] MEDS ORDERED: IBUPROFEN 600 MG TABLET PO PRN (10:15)
[2017-02-13] MEDS ORDERED: MAG HYDROX/AL HYDROX/SIMETH ES 30 ML SUSPENSION UDCUP PO PRN (10:15)
[2017-02-13] MEDS ORDERED: MAGNESIUM HYDROXIDE SUSPENSION 30 ML UDCUP PO PRN (10:15)
[2017-02-13] MEDS ORDERED: PETROLATUM,WHITE 71 GM JELLY TP PRN (10:15)
[2017-02-14 07:06] VITALS: BP 122/78
[2017-02-14 09:01] VITALS: BP 128/79
[2017-02-14] MEDS: OMEPRAZOLE 20 MG CAPSULE PO SCH (09:06)
[2017-02-14] MEDS: LITHIUM CARBONATE 300 MG CAPSULE PO SCH ×2 (09:06→16:20)
[2017-02-14] MEDS: DIVALPROEX SODIUM 500 MG DR TABLET PO SCH ×2 (09:06→16:20)
[2017-02-14] MEDS: MULTIVITAMINS WITH MINERALS, THERAPEUTIC TABLET PO SCH (09:06)
[2017-02-14] MEDS: NICOTINE 21 MG/24 HOUR PATCH TD SCH (09:07)
[2017-02-15 08:20] VITALS: BP 120/62
[2017-02-15 09:38] LABS: CHOL/HDL RATIO 2.5 (4.2-7.3); THYROID STIMULATING HORMONE 0.36 uIU/mL (0.36-3.74)
[2017-02-15] MEDS: DIVALPROEX SODIUM 500 MG DR TABLET PO SCH ×2 (09:44→16:45)
[2017-02-15] MEDS: NICOTINE 21 MG/24 HOUR PATCH TD SCH (09:44)
[2017-02-15] MEDS: MULTIVITAMINS WITH MINERALS, THERAPEUTIC TABLET PO SCH (09:44)
[2017-02-15] MEDS: LITHIUM CARBONATE 300 MG CAPSULE PO SCH ×2 (09:44→16:45)
[2017-02-15] MEDS: OMEPRAZOLE 20 MG CAPSULE PO SCH (09:44)
[2017-02-15 16:00] VITALS: BP 114/62
[2017-02-15] MEDS: SULFAMETHOX/TRIMETH DS 800-160 MG/TABLET PO SCH (16:45)
[2017-02-16 06:33] VITALS: BP 110/60
[2017-02-16] MEDS: MULTIVITAMINS WITH MINERALS, THERAPEUTIC TABLET PO SCH (08:34)
[2017-02-16] MEDS: NICOTINE 21 MG/24 HOUR PATCH TD SCH (08:34)
[2017-02-16] MEDS: LITHIUM CARBONATE 300 MG CAPSULE PO SCH ×2 (08:34→16:23)
[2017-02-16] MEDS: DIVALPROEX SODIUM 500 MG DR TABLET PO SCH ×2 (08:34→16:23)
[2017-02-16] MEDS: OMEPRAZOLE 20 MG CAPSULE PO SCH (08:34)
[2017-02-16] MEDS: SULFAMETHOX/TRIMETH DS 800-160 MG/TABLET PO SCH ×2 (08:34→16:23)
[2017-02-16 16:00] VITALS: BP 104/63
[2017-02-16] MEDS ORDERED: CEPHALEXIN MONOHYDRATE 500 MG CAPSULE PO SCH (20:00)
[2017-02-16] MEDS: CEPHALEXIN MONOHYDRATE 500 MG CAPSULE PO SCH (20:48)
[2017-02-17 01:36] VITALS: BP 124/74
[2017-02-17 04:33] VITALS: BP 118/78
[2017-02-17] MEDS: CEPHALEXIN MONOHYDRATE 500 MG CAPSULE PO SCH ×2 (04:35→11:43)
[2017-02-17 08:16] VITALS: BP 107/66
[2017-02-17] MEDS: OMEPRAZOLE 20 MG CAPSULE PO SCH (09:28)
[2017-02-17] MEDS: NICOTINE 21 MG/24 HOUR PATCH TD SCH (09:28)
[2017-02-17] MEDS: LITHIUM CARBONATE 300 MG CAPSULE PO SCH (09:28)
[2017-02-17] MEDS: SULFAMETHOX/TRIMETH DS 800-160 MG/TABLET PO SCH (09:29)
[2017-02-17] MEDS: MULTIVITAMINS WITH MINERALS, THERAPEUTIC TABLET PO SCH (09:29)
[2017-02-17] MEDS: DIVALPROEX SODIUM 500 MG DR TABLET PO SCH (09:29)
[2017-02-17] MEDS ORDERED: SULF1TAB42 PO (12:50)
[2017-02-17] MEDS ORDERED: CEPH500 PO (12:51)
== END 2017-02-17 13:55 | disposition home or self-care (01) | DRG 885 ==
LOC: B2S 16:22 → EDSTATUS 16:24
PROVIDERS: ADMIT Psychiatry & Neurology Psychiatry; ATTEND Psychiatry & Neurology Psychiatry
DX: F25.9 Schizoaffective disorder, unspecified (principal); E44.1 Mild protein-calorie malnutrition; L02.413 Cutaneous abscess of right upper limb; R45.851 Suicidal ideations; J44.9 Chronic obstructive pulmonary disease, unspecified; E55.9 Vitamin D deficiency, unspecified; Z72.0 Tobacco use; K21.9 Gastro-esophageal reflux disease without esophagitis; K59.00 Constipation, unspecified; D64.9 Anemia, unspecified; Z68.23 Body mass index [BMI] 23.0-23.9, adult
CPT/HCPCS: 82306; 84443

== ENCOUNTER 2017-07-19 03:25 | Inpatient (IN) | payer MEDICARE ==
[~2017-07-19] VITALS: Ht 185.4 cm; Wt 70.8 kg
[~2017-07-19 03:25] MED LIST changes: +DOXY100C PO; +MUPI15CR TP; +SULF1TAB42 PO
[2017-07-19] MEDS ORDERED: LORazepam 2 MG TABLET PO PRN ×2 (04:00→04:30)
[2017-07-19] MEDS ORDERED: HALOPERIDOL 5 MG TABLET PO PRN ×2 (04:00→04:30)
[2017-07-19] MEDS ORDERED: ZOLPIDEM TARTRATE 10 MG TABLET PO PRN (04:30)
[2017-07-19] MEDS ORDERED: QUET100T PO (07:02)
[2017-07-19] MEDS ORDERED: OLAN10TA3 PO (07:02)
[2017-07-19] MEDS ORDERED: BACITRACIN 28.4 GM OINTMENT TP PRN (08:45)
[2017-07-19] MEDS ORDERED: MAGNESIUM HYDROXIDE SUSPENSION 30 ML UDCUP PO PRN (08:45)
[2017-07-19] MEDS ORDERED: ONDANSETRON HCL 4 MG TABLET PO PRN (08:45)
[2017-07-19] MEDS ORDERED: MAG HYDROX/AL HYDROX/SIMETH ES 30 ML SUSPENSION UDCUP PO PRN (08:45)
[2017-07-19] MEDS ORDERED: PETROLATUM,WHITE 71 GM JELLY TP PRN (08:45)
[2017-07-19] MEDS ORDERED: BENZOCAINE/MENTHOL LOZENGE [8 LOZENGES/PACKET] MM PRN (08:45)
[2017-07-19] MEDS ORDERED: ACETAMINOPHEN 325 MG TABLET PO PRN (08:45)
[2017-07-19] MEDS ORDERED: ALBUTEROL SULFATE HFA 90 MCG/PUFF 8 GM INHALER IH PRN (08:45)
[2017-07-19] MEDS ORDERED: CloNIDine HCL 0.1 MG TABLET PO PRN (08:45)
[2017-07-19] MEDS ORDERED: LOPERAMIDE HCL 2 MG CAPSULE PO PRN (08:45)
[2017-07-19] MEDS ORDERED: IBUPROFEN 600 MG TABLET PO PRN (08:45)
[2017-07-19 09:44] VITALS: BP 117/68
[2017-07-19] MEDS: CHOLECALCIFEROL (VIT D3) 1,000 UNITS TABLET PO SCH (12:43)
[2017-07-19] MEDS: DOCUSATE SODIUM 100 MG CAPSULE PO SCH (12:43)
[2017-07-19] MEDS: OMEPRAZOLE 20 MG CAPSULE PO SCH (12:43)
[2017-07-19] MEDS ORDERED: ZOLPIDEM TARTRATE 10 MG TABLET PO SCH (21:00)
[2017-07-20] MEDS: OMEPRAZOLE 20 MG CAPSULE PO SCH (09:18)
[2017-07-20] MEDS: CHOLECALCIFEROL (VIT D3) 1,000 UNITS TABLET PO SCH (09:18)
[2017-07-20] MEDS: DOCUSATE SODIUM 100 MG CAPSULE PO SCH (09:18)
[2017-07-20 16:23] VITALS: BP 146/67
[2017-07-21 08:35] VITALS: BP 114/67
[2017-07-21] MEDS: CHOLECALCIFEROL (VIT D3) 1,000 UNITS TABLET PO SCH (08:39)
[2017-07-21] MEDS: OMEPRAZOLE 20 MG CAPSULE PO SCH (08:39)
[2017-07-21] MEDS: DOCUSATE SODIUM 100 MG CAPSULE PO SCH (08:39)
[2017-07-21 18:55] VITALS: BP 129/77
[2017-07-21] MEDS: OLANZapine 10 MG TABLET PO SCH (20:47)
[2017-07-22] MEDS: OMEPRAZOLE 20 MG CAPSULE PO SCH (08:50)
[2017-07-22] MEDS: CHOLECALCIFEROL (VIT D3) 1,000 UNITS TABLET PO SCH (08:50)
[2017-07-22] MEDS: DOCUSATE SODIUM 100 MG CAPSULE PO SCH (08:51)
[2017-07-22 11:10] VITALS: BP 133/91
[2017-07-22] MEDS: OLANZapine 10 MG TABLET PO SCH (20:33)
[2017-07-23] MEDS: CHOLECALCIFEROL (VIT D3) 1,000 UNITS TABLET PO SCH (08:05)
[2017-07-23] MEDS: OMEPRAZOLE 20 MG CAPSULE PO SCH (08:05)
[2017-07-23] MEDS: DOCUSATE SODIUM 100 MG CAPSULE PO SCH (08:05)
[2017-07-23 08:12] VITALS: BP 113/81
[2017-07-23] MEDS ORDERED: DSS100 PO (11:43)
[2017-07-23] MEDS ORDERED: VITAD1000 PO (11:43)
[2017-07-23] MEDS ORDERED: OMEP20 PO (11:46)
[2017-07-23] MEDS: OLANZapine 10 MG TABLET PO SCH (20:10)
[2017-07-24] MEDS: DOCUSATE SODIUM 100 MG CAPSULE PO SCH (08:12)
[2017-07-24] MEDS: OMEPRAZOLE 20 MG CAPSULE PO SCH (08:12)
[2017-07-24] MEDS: CHOLECALCIFEROL (VIT D3) 1,000 UNITS TABLET PO SCH (08:12)
[2017-07-24 08:44] VITALS: BP 139/92
== END 2017-07-24 13:00 | disposition home or self-care (01) | DRG 885 ==
LOC: 3EX 04:18
PROVIDERS: ADMIT Psychiatry & Neurology Psychiatry; ATTEND Psychiatry & Neurology Psychiatry
DX: F20.0 Paranoid schizophrenia (principal); E44.1 Mild protein-calorie malnutrition; E55.9 Vitamin D deficiency, unspecified; F17.200 Nicotine dependence, unspecified, uncomplicated; G47.00 Insomnia, unspecified; J44.9 Chronic obstructive pulmonary disease, unspecified; K21.9 Gastro-esophageal reflux disease without esophagitis; K59.00 Constipation, unspecified; F95.2 Tourette's disorder; Z81.8 Family history of other mental and behavioral disorders; Z91.5 Personal history of self-harm; Z68.20 Body mass index [BMI] 20.0-20.9, adult; Z88.8 Allergy status to other drugs, medicaments and biological substances; Z79.899 Other long term (current) drug therapy
CPT/HCPCS: 87081

== ENCOUNTER 2017-07-19 06:42 | Emergency (ER) | payer MEDICARE ==
[~2017-07-19] VITALS: Ht 177.8 cm; Wt 70.5 kg
[2017-07-19] MEDS ORDERED: OLAN10TA3 PO (07:02)
[2017-07-19] MEDS ORDERED: QUET100T PO (07:02)
[2017-07-19 07:10] VITALS: BP 136/76
[2017-07-19] MEDS ORDERED: CEPHALEXIN MONOHYDRATE 500 MG CAPSULE PO ONE (07:15)
[2017-07-19 07:24] LABS: BASOPHILS % (AUTO) 0.8 % (0.0-2.0); EOSINOPHILS % (AUTO) 2.9 % (1.0-6.0); HEMATOCRIT 38.1 % (41-53); HEMOGLOBIN 13.1 g/dL (13.5-17.5); LYMPHOCYTES # (AUTO) 1.4 K/uL (1.0-4.8); LYMPHOCYTES % (AUTO) 17.7 % (22.0-44.0); MEAN CORPUSCULAR HEMOGLOBIN 32.8 pg (26.0-34.0); MEAN CORPUSCULAR HGB CONC 34.3 G/dL (31.0-37.0); MEAN CORPUSCULAR VOLUME 96 fL (80-100); MONOCYTES # (AUTO) 0.6 K/uL (0.1-1.0); MONOCYTES % (AUTO) 7.2 % (2.0-9.0); NEUTROPHILS # (AUTO) 5.5 K/uL (1.8-7.7); NEUTROPHILS % (AUTO) 71.4 % (40.0-70.0); PLATELET COUNT (AUTO) 245 K/uL (150-450); RED BLOOD CELL COUNT(AUTO) 3.98 MIL/uL (4.50-5.90); RED CELL DISTRIBUTION WIDTH 13.4 % (11.5-14.5); WHITE BLOOD COUNT (AUTO) 7.7 K/uL (4.5-11.0)
[2017-07-19 07:34] LABS: ANION GAP 7 mmol/L (8-16); CALCIUM, TOTAL 9.3 mg/dL (8.8-10.5); CARBON DIOXIDE 30 mmol/L (22-29); CHLORIDE 102 mmol/L (98-107); CREATININE 0.93 mg/dL (0.60-1.30); GLOMERULAR FILTR. RATE CALC > 60 mL/min (>60); POTASSIUM 4.1 mmol/L (3.5-5.1); SODIUM SERUM 139 mmol/L (136-145); UREA NITROGEN, BLOOD 10 mg/dL (7-18)
[2017-07-19 07:40] LABS: ALANINE AMINOTRANSFERASE 19 U/L (12-78); ALBUMIN 3.8 g/dL (3.4-5.0); ASPARTATE AMINOTRANSFERASE 12 U/L (15-37); BILIRUBIN,TOTAL 0.2 mg/dL (0.1-1.0); TOTAL PROTEIN, SERUM 7.3 g/dL (6.4-8.2)
== END 2017-07-19 09:43 | disposition other institution (70) ==
LOC: EMS 06:44
DX: F20.9 Schizophrenia, unspecified (principal); L08.89 Other specified local infections of the skin and subcutaneous tissue; I10 Essential (primary) hypertension; F17.210 Nicotine dependence, cigarettes, uncomplicated; Z59.0 Homelessness; Z88.8 Allergy status to other drugs, medicaments and biological substances
CPT/HCPCS: 36415; 80053; 85025; 99285; G0480

== ENCOUNTER 2017-08-22 20:29 | Inpatient (IN) | payer MEDICARE ==
[~2017-08-22] VITALS: Ht 185.4 cm; Wt 71.2 kg
[~2017-08-22 20:29] MED LIST changes: -DIVA500T35 PO; -DOXY100C PO; +DSS100 PO; -LITH300C3 PO; -MUPI15CR TP; +OLAN10TA3 PO; +OMEP20 PO; -SULF1TAB42 PO; +VITAD1000 PO
[2017-08-22] MEDS ORDERED: LORazepam 2 MG TABLET PO PRN (20:45)
[2017-08-22] MEDS ORDERED: HALOPERIDOL 5 MG TABLET PO PRN (20:45)
[2017-08-22] MEDS ORDERED: ZOLPIDEM TARTRATE 10 MG TABLET PO PRN (20:45)
[2017-08-22 21:15] VITALS: BP 104/83
[2017-08-22] MEDS ORDERED: INFLUENZA VIRUS VACCINE QVS 2017-18 (3YR+)/PF 60 MCG/0.5 ML SYRINGE IM ONE (23:00)
[2017-08-22] MEDS ORDERED: -PHARMACY VACCINE NOTE- MISC ONE (23:00)
[2017-08-23] MEDS ORDERED: CloNIDine HCL 0.1 MG TABLET PO PRN (07:30)
[2017-08-23] MEDS ORDERED: ACETAMINOPHEN 325 MG TABLET PO PRN (07:30)
[2017-08-23] MEDS ORDERED: ONDANSETRON HCL 4 MG TABLET PO PRN (07:30)
[2017-08-23] MEDS ORDERED: BENZOCAINE/MENTHOL LOZENGE MM PRN (07:30)
[2017-08-23] MEDS ORDERED: ALBUTEROL SULFATE HFA 90 MCG/PUFF 8 GM INHALER IH PRN (07:30)
[2017-08-23] MEDS ORDERED: LOPERAMIDE HCL 2 MG CAPSULE PO PRN (07:30)
[2017-08-23] MEDS ORDERED: MAGNESIUM HYDROXIDE SUSPENSION 30 ML UDCUP PO PRN (07:30)
[2017-08-23] MEDS ORDERED: PETROLATUM,WHITE 71 GM JELLY TP PRN (07:30)
[2017-08-23] MEDS ORDERED: IBUPROFEN 600 MG TABLET PO PRN (07:30)
[2017-08-23] MEDS ORDERED: BACITRACIN 28.4 GM OINTMENT TP PRN (07:30)
[2017-08-23] MEDS ORDERED: MAG HYDROX/AL HYDROX/SIMETH ES 30 ML SUSPENSION UDCUP PO PRN (07:30)
[2017-08-23 08:28] LABS: BASOPHILS # (AUTO) 0.05 K/uL (0.00-0.20); BASOPHILS % (AUTO) 0.8 % (0.0-2.0); EOSINOPHILS # (AUTO) 0.19 K/uL (0.00-0.70); EOSINOPHILS % (AUTO) 3.16 % (1.0-6.0); HEMATOCRIT 40.4 % (41-53); HEMOGLOBIN 13.3 g/dL (13.5-17.5); LYMPHOCYTES # (AUTO) 1.6 K/uL (1.0-4.8); LYMPHOCYTES % (AUTO) 25.3 % (22.0-44.0); MEAN CORPUSCULAR HEMOGLOBIN 31.8 pg (26.0-34.0); MEAN CORPUSCULAR HGB CONC 32.9 G/dL (31.0-37.0); MEAN CORPUSCULAR VOLUME 97 fL (80-100); MONOCYTES # (AUTO) 0.4 K/uL (0.1-1.0); MONOCYTES % (AUTO) 6.9 % (2.0-9.0); NEUTROPHILS # (AUTO) 3.9 K/uL (1.8-7.7); NEUTROPHILS % (AUTO) 63.8 % (40.0-70.0); PLATELET COUNT (AUTO) 243 K/uL (150-450); RED BLOOD CELL COUNT(AUTO) 4.18 MIL/uL (4.50-5.90); RED CELL DISTRIBUTION WIDTH 13.3 % (11.5-14.5)
[2017-08-23 08:46] VITALS: BP 102/63
[2017-08-23] MEDS: DOCUSATE SODIUM 100 MG CAPSULE PO SCH (09:07)
[2017-08-23] MEDS: CEPHALEXIN MONOHYDRATE 500 MG CAPSULE PO SCH ×3 (09:07→16:34)
[2017-08-23] MEDS: OMEPRAZOLE 20 MG CAPSULE PO SCH (09:07)
[2017-08-23] MEDS: CHOLECALCIFEROL (VIT D3) 1,000 UNITS TABLET PO SCH (09:07)
[2017-08-23] MEDS: NICOTINE 21 MG/24 HOUR PATCH TD SCH (09:08)
[2017-08-23 09:16] LABS: HEMOGLOBIN A1C 5.7 % (4.5-6.2)
[2017-08-23 09:34] LABS: ALANINE AMINOTRANSFERASE 22 U/L (12-78); ALBUMIN 3.4 g/dL (3.4-5.0); ALKALINE PHOSPHATASE 70 U/L (46-116); ANION GAP 5 mmol/L (8-16); ASPARTATE AMINOTRANSFERASE 19 U/L (15-37); BILIRUBIN,TOTAL 0.3 mg/dL (0.1-1.0); CARBON DIOXIDE 30 mmol/L (22-29); CHLORIDE 104 mmol/L (98-107); CHOL/HDL RATIO 2.2 (4.2-7.3); CHOLESTEROL 103 mg/dL (131-200); CREATININE 1.05 mg/dL (0.60-1.30); FREE T4 (FREE THYROXINE) 1.14 ng/dL (0.76-1.46); GLOMERULAR FILTR. RATE CALC > 60 mL/min (>60); GLUCOSE,RANDOM 80 mg/dL (70-110); HDL CHOLESTEROL 47 mg/dL (40-60); LDL CHOL (CALC.) 39 mg/dL (0-130); POTASSIUM 4.2 mmol/L (3.5-5.1); SODIUM SERUM 139 mmol/L (136-145); THYROID STIMULATING HORMONE 0.72 uIU/mL (0.36-3.74); TOTAL PROTEIN, SERUM 7.2 g/dL (6.4-8.2); TRIGLYCERIDES 83 mg/dL (15-150); UREA NITROGEN, BLOOD 12 mg/dL (7-18)
[2017-08-23 17:55] VITALS: BP 102/70
[2017-08-23] MEDS: MUPIROCIN CALCIUM 2% 15 GM CREAM TP SCH (20:57)
[2017-08-24 00:53] VITALS: BP 120/86
[2017-08-24 08:10] VITALS: BP 105/58
[2017-08-24] MEDS: CEPHALEXIN MONOHYDRATE 500 MG CAPSULE PO SCH ×3 (08:59→16:37)
[2017-08-24] MEDS: DOCUSATE SODIUM 100 MG CAPSULE PO SCH (08:59)
[2017-08-24] MEDS: CHOLECALCIFEROL (VIT D3) 1,000 UNITS TABLET PO SCH (08:59)
[2017-08-24] MEDS: MUPIROCIN CALCIUM 2% 15 GM CREAM TP SCH ×2 (09:00→20:50)
[2017-08-24] MEDS: NICOTINE 21 MG/24 HOUR PATCH TD SCH (09:00)
[2017-08-24] MEDS: OMEPRAZOLE 20 MG CAPSULE PO SCH (09:00)
[2017-08-24 16:28] VITALS: BP 104/60
[2017-08-24] MEDS: OLANZapine 10 MG TABLET PO SCH (20:59)
[2017-08-25 07:01] VITALS: BP 110/68
[2017-08-25 08:31] VITALS: BP 106/60
[2017-08-25] MEDS: OMEPRAZOLE 20 MG CAPSULE PO SCH (09:06)
[2017-08-25] MEDS: DOCUSATE SODIUM 100 MG CAPSULE PO SCH (09:06)
[2017-08-25] MEDS: NICOTINE 21 MG/24 HOUR PATCH TD SCH (09:06)
[2017-08-25] MEDS: CHOLECALCIFEROL (VIT D3) 1,000 UNITS TABLET PO SCH (09:06)
[2017-08-25] MEDS: CEPHALEXIN MONOHYDRATE 500 MG CAPSULE PO SCH ×3 (09:06→17:09)
[2017-08-25] MEDS: MUPIROCIN CALCIUM 2% 15 GM CREAM TP SCH ×2 (10:30→17:09)
[2017-08-25 16:26] VITALS: BP 112/74
[2017-08-25] MEDS: OLANZapine 10 MG TABLET PO SCH (20:19)
[2017-08-26] VITALS: BP 102/60
[2017-08-26] MEDS: CEPHALEXIN MONOHYDRATE 500 MG CAPSULE PO SCH ×3 (08:33→16:32)
[2017-08-26] MEDS: DOCUSATE SODIUM 100 MG CAPSULE PO SCH (08:33)
[2017-08-26] MEDS: CHOLECALCIFEROL (VIT D3) 1,000 UNITS TABLET PO SCH (08:33)
[2017-08-26] MEDS: OMEPRAZOLE 20 MG CAPSULE PO SCH (08:33)
[2017-08-26] MEDS: NICOTINE 21 MG/24 HOUR PATCH TD SCH (08:34)
[2017-08-26] MEDS: MUPIROCIN CALCIUM 2% 15 GM CREAM TP SCH ×2 (12:14→16:32)
[2017-08-26 12:23] VITALS: BP 110/62
[2017-08-26 17:40] VITALS: BP 108/68
[2017-08-26] MEDS: OLANZapine 10 MG TABLET PO SCH (20:38)
[2017-08-27 00:10] VITALS: BP 108/65
[2017-08-27 08:10] VITALS: BP 118/73
[2017-08-27] MEDS: OMEPRAZOLE 20 MG CAPSULE PO SCH (09:31)
[2017-08-27] MEDS: CHOLECALCIFEROL (VIT D3) 1,000 UNITS TABLET PO SCH (09:31)
[2017-08-27] MEDS: DOCUSATE SODIUM 100 MG CAPSULE PO SCH (09:31)
[2017-08-27] MEDS: CEPHALEXIN MONOHYDRATE 500 MG CAPSULE PO SCH ×2 (09:31→12:20)
[2017-08-27] MEDS: NICOTINE 21 MG/24 HOUR PATCH TD SCH (09:32)
[2017-08-27] MEDS ORDERED: CEPH500B PO (11:12)
[2017-08-27] MEDS: MUPIROCIN CALCIUM 2% 15 GM CREAM TP SCH (12:20)
== END 2017-08-27 14:00 | disposition home or self-care (01) | DRG 885 ==
LOC: B2X 20:45 → EDSTATUS 20:52
PROVIDERS: ADMIT Psychiatry & Neurology Psychiatry; ATTEND Psychiatry & Neurology Psychiatry
DX: F25.9 Schizoaffective disorder, unspecified (principal); E46 Unspecified protein-calorie malnutrition; R45.851 Suicidal ideations; F23 Brief psychotic disorder; Z59.0 Homelessness; J44.9 Chronic obstructive pulmonary disease, unspecified; K21.9 Gastro-esophageal reflux disease without esophagitis; G47.00 Insomnia, unspecified; F41.9 Anxiety disorder, unspecified; K59.00 Constipation, unspecified; L08.9 Local infection of the skin and subcutaneous tissue, unspecified; E55.9 Vitamin D deficiency, unspecified; Z68.20 Body mass index [BMI] 20.0-20.9, adult; Z88.8 Allergy status to other drugs, medicaments and biological substances; Z79.899 Other long term (current) drug therapy; Z28.21 Immunization not carried out because of patient refusal
CPT/HCPCS: 83036; 84439; 84443; 90471; 99285

== ENCOUNTER 2017-09-25 13:43 | Inpatient (IN) | payer MEDICARE ==
[~2017-09-25] VITALS: Ht 188 cm; Wt 69.9 kg
[~2017-09-25 13:43] MED LIST changes: +CEPH500B PO; -DSS100 PO; -OMEP20 PO
[2017-09-25] MEDS ORDERED: LORazepam 2 MG TABLET PO PRN (15:30)
[2017-09-25] MEDS ORDERED: HALOPERIDOL 5 MG TABLET PO PRN (15:30)
[2017-09-25] MEDS ORDERED: ZOLPIDEM TARTRATE 10 MG TABLET PO PRN (15:30)
[2017-09-25 15:36] LABS: AMPHET/METH SCREEN,URINE NEGATIVE (NEGATIVE); BARBITURATE SCREEN, URINE NEGATIVE (NEGATIVE); BENZODIAZEPINES SCREEN,URINE NEGATIVE (NEGATIVE); CANNABINOID SCREEN,URINE NEGATIVE (NEGATIVE); COCAINE SCREEN,URINE NEGATIVE (NEGATIVE); METHADONE SCREEN, URINE NEGATIVE (NEGATIVE); OPIATE SCREEN,URINE NEGATIVE (NEGATIVE)
[2017-09-25 15:38] LABS: PHENCYCLIDINE SCREEN,URINE NEGATIVE (NEGATIVE)
[2017-09-25 15:41] LABS: BASOPHILS % (AUTO) 0.4 % (0.0-2.0); EOSINOPHILS % (AUTO) 0.7 % (1.0-6.0); HEMATOCRIT 42.3 % (41-53); HEMOGLOBIN 14.4 g/dL (13.5-17.5); LYMPHOCYTES # (AUTO) 1.2 K/uL (1.0-4.8); LYMPHOCYTES % (AUTO) 12.3 % (22.0-44.0); MEAN CORPUSCULAR HEMOGLOBIN 31.8 pg (26.0-34.0); MEAN CORPUSCULAR HGB CONC 34.1 G/dL (31.0-37.0); MEAN CORPUSCULAR VOLUME 93 fL (80-100); MONOCYTES # (AUTO) 0.4 K/uL (0.1-1.0); MONOCYTES % (AUTO) 3.9 % (2.0-9.0); NEUTROPHILS % (AUTO) 82.7 % (40.0-70.0); PLATELET COUNT (AUTO) 259 K/uL (150-450); RED BLOOD CELL COUNT(AUTO) 4.55 MIL/uL (4.50-5.90); RED CELL DISTRIBUTION WIDTH 13.8 % (11.5-14.5)
[2017-09-25 15:55] LABS: ANION GAP 8 mmol/L (8-16); CALCIUM, TOTAL 9.4 mg/dL (8.8-10.5); CARBON DIOXIDE 28 mmol/L (22-29); CHLORIDE 104 mmol/L (98-107); CREATININE 0.84 mg/dL (0.60-1.30); GLOMERULAR FILTR. RATE CALC > 60 mL/min (>60); GLUCOSE,RANDOM 93 mg/dL (70-110); POTASSIUM 3.8 mmol/L (3.5-5.1); SODIUM SERUM 140 mmol/L (136-145); UREA NITROGEN, BLOOD 13 mg/dL (7-18)
[2017-09-25 16:01] LABS: ALANINE AMINOTRANSFERASE 14 U/L (12-78); ALBUMIN 4.5 g/dL (3.4-5.0); ALKALINE PHOSPHATASE 71 U/L (46-116); ASPARTATE AMINOTRANSFERASE 15 U/L (15-37); BILIRUBIN,TOTAL 0.4 mg/dL (0.1-1.0)
[2017-09-25 20:46] VITALS: BP 110/67
[2017-09-25 21:42] VITALS: BP 110/67
[2017-09-26] VITALS: BP 109/61
[2017-09-26] MEDS ORDERED: INFLUENZA VIRUS VACCINE QVS 2017-18 (3YR+)/PF 60 MCG/0.5 ML SYRINGE IM ONE (06:30)
[2017-09-26 08:23] VITALS: BP 106/60
[2017-09-26 08:55] LABS: CHOL/HDL RATIO 2.1 (4.2-7.3)
[2017-09-26] MEDS ORDERED: IBUPROFEN 600 MG TABLET PO PRN (09:00)
[2017-09-26] MEDS ORDERED: BENZOCAINE/MENTHOL LOZENGE [8 LOZENGES/PACKET] MM PRN (09:00)
[2017-09-26] MEDS ORDERED: BACITRACIN 28.4 GM OINTMENT TP PRN (09:00)
[2017-09-26] MEDS ORDERED: PETROLATUM,WHITE 71 GM JELLY TP PRN (09:00)
[2017-09-26] MEDS ORDERED: ALBUTEROL SULFATE HFA 90 MCG/PUFF 8 GM INHALER IH PRN (09:00)
[2017-09-26] MEDS ORDERED: MAG HYDROX/AL HYDROX/SIMETH ES 30 ML SUSPENSION UDCUP PO PRN (09:00)
[2017-09-26] MEDS ORDERED: CloNIDine HCL 0.1 MG TABLET PO PRN (09:00)
[2017-09-26] MEDS ORDERED: ONDANSETRON HCL 4 MG TABLET PO PRN (09:00)
[2017-09-26] MEDS ORDERED: ACETAMINOPHEN 325 MG TABLET PO PRN (09:00)
[2017-09-26] MEDS ORDERED: MAGNESIUM HYDROXIDE SUSPENSION 30 ML UDCUP PO PRN (09:00)
[2017-09-26] MEDS ORDERED: LOPERAMIDE HCL 2 MG CAPSULE PO PRN (09:00)
[2017-09-26] MEDS: NICOTINE 21 MG/24 HOUR PATCH TD SCH (10:00)
[2017-09-26] MEDS: CHOLECALCIFEROL (VIT D3) 1,000 UNITS TABLET PO SCH (10:00)
[2017-09-26 17:52] VITALS: BP 117/76
[2017-09-26] MEDS: OLANZapine 10 MG TABLET PO SCH (20:36)
[2017-09-27 00:21] VITALS: BP 110/60
[2017-09-27 09:11] VITALS: BP 112/66
[2017-09-27] MEDS: NICOTINE 21 MG/24 HOUR PATCH TD SCH (09:53)
[2017-09-27] MEDS: CHOLECALCIFEROL (VIT D3) 1,000 UNITS TABLET PO SCH (09:53)
[2017-09-27 16:13] VITALS: BP 123/72
[2017-09-27] MEDS: OLANZapine 10 MG TABLET PO SCH (20:14)
[2017-09-28 06:18] VITALS: BP 122/68
[2017-09-28] MEDS: CHOLECALCIFEROL (VIT D3) 1,000 UNITS TABLET PO SCH (08:09)
[2017-09-28] MEDS: NICOTINE 21 MG/24 HOUR PATCH TD SCH (08:09)
[2017-09-28 08:29] VITALS: BP 120/70
[2017-09-28 16:06] VITALS: BP 112/73
[2017-09-28] MEDS: OLANZapine 10 MG TABLET PO SCH (20:53)
[2017-09-29 06:16] VITALS: BP 100/62
[2017-09-29] MEDS: CHOLECALCIFEROL (VIT D3) 1,000 UNITS TABLET PO SCH (08:17)
[2017-09-29] MEDS: NICOTINE 21 MG/24 HOUR PATCH TD SCH (08:17)
[2017-09-29 08:31] VITALS: BP 125/64
== END 2017-09-29 10:15 | disposition home or self-care (01) | DRG 885 ==
LOC: EMS 13:46 → B3A 16:11 → B2X 19:58
PROVIDERS: ADMIT Psychiatry & Neurology Psychiatry; ATTEND Psychiatry & Neurology Psychiatry
PROC: 3E0234Z Introduction of Serum, Toxoid and Vaccine into Muscle, Percutaneous Approach (ICD-10-PCS; principal; 2017-09-26)
DX: F20.0 Paranoid schizophrenia (principal); E44.1 Mild protein-calorie malnutrition; R45.851 Suicidal ideations; Z68.1 Body mass index [BMI] 19.9 or less, adult; E55.9 Vitamin D deficiency, unspecified; F17.200 Nicotine dependence, unspecified, uncomplicated; G47.00 Insomnia, unspecified; I10 Essential (primary) hypertension; J44.9 Chronic obstructive pulmonary disease, unspecified; K21.9 Gastro-esophageal reflux disease without esophagitis; F41.9 Anxiety disorder, unspecified; K59.00 Constipation, unspecified; Z88.8 Allergy status to other drugs, medicaments and biological substances; Z79.899 Other long term (current) drug therapy; Z23 Encounter for immunization
CPT/HCPCS: 87081; 99285; 99406; G0480

== ENCOUNTER 2018-01-12 13:34 | Emergency (ER) | payer MEDICARE ==
[~2018-01-12] VITALS: Ht 188 cm; Wt 79.5 kg
[~2018-01-12 13:34] MED LIST changes: -CEPH500B PO
[2018-01-12] MEDS ORDERED: IPRATROPIUM BROMIDE 0.03% 21 MCG/SPRAY 30 ML NASAL SPRAY NASAL ONE (16:30)
[2018-01-12] MEDS ORDERED: SULFAMETHOX/TRIMETH DS 800-160 MG/TABLET PO ONE (16:45)
[2018-01-12 16:57] VITALS: BP 113/70
[2018-01-16] MEDS ORDERED: OLAN10TA3 PO (15:58)
== END 2018-01-12 17:02 | disposition home or self-care (01) ==
LOC: EMS 13:36
DX: J30.9 Allergic rhinitis, unspecified (principal); J32.9 Chronic sinusitis, unspecified; F20.9 Schizophrenia, unspecified; E78.00 Pure hypercholesterolemia, unspecified; I10 Essential (primary) hypertension; F17.210 Nicotine dependence, cigarettes, uncomplicated; Z88.8 Allergy status to other drugs, medicaments and biological substances
CPT/HCPCS: 99283

== ENCOUNTER 2019-08-19 09:49 | Emergency (ER) | payer MEDICARE ==
[~2019-08-19] VITALS: Ht 185.4 cm; Wt 81.8 kg
[~2019-08-19 09:49] MED LIST changes: -VITAD1000 PO
[2019-08-19] MEDS ORDERED: CLINDAMYCIN HCL 150 MG CAPSULE PO ONE (10:45)
[2019-08-19] MEDS ORDERED: IBUPROFEN 600 MG TABLET PO ONE (10:45)
[2019-08-19 11:06] VITALS: BP 146/83
== END 2019-08-19 11:08 | disposition home or self-care (01) ==
LOC: EMS 09:51
DX: K04.7 Periapical abscess without sinus (principal); F31.9 Bipolar disorder, unspecified; F20.9 Schizophrenia, unspecified; I10 Essential (primary) hypertension; E78.00 Pure hypercholesterolemia, unspecified; F17.210 Nicotine dependence, cigarettes, uncomplicated; Z88.5 Allergy status to narcotic agent

== ENCOUNTER 2022-03-19 00:52 | Inpatient (IN) | payer MEDICARE, MEDICAID ==
[~2022-03-19] VITALS: Ht 185.4 cm; Wt 75.4 kg
[~2022-03-19 00:52] MED LIST changes: +MELA5TAB40 PO; +NALT50TA PO; +OLAN10 PO; -OLAN10TA3 PO; +OMEG-135 PO
[2022-03-19 01:56] LABS: EOSINOPHILS % (AUTO) 4.5 % (1.0-6.0); HEMATOCRIT 35.4 % (41-53); LYMPHOCYTES # (AUTO) 2.1 K/uL (1.0-4.8); LYMPHOCYTES % (AUTO) 27.5 % (22.0-44.0); MEAN CORPUSCULAR HEMOGLOBIN 31.5 pg (26.0-34.0); MEAN CORPUSCULAR HGB CONC 33.8 G/dL (31.0-37.0); MEAN CORPUSCULAR VOLUME 93 fL (80-100); MONOCYTES # (AUTO) 0.5 K/uL (0.1-1.0); MONOCYTES % (AUTO) 6.6 % (2.0-9.0); NEUTROPHILS # (AUTO) 4.6 K/uL (1.8-7.7); NEUTROPHILS % (AUTO) 60.4 % (40.0-70.0); PLATELET COUNT (AUTO) 304 K/uL (150-450); RED BLOOD CELL COUNT(AUTO) 3.79 MIL/uL (4.50-5.90); RED CELL DISTRIBUTION WIDTH 13.1 % (11.5-14.5)
[2022-03-19 01:59] LABS: ANION GAP 6 mmol/L (8-16); CARBON DIOXIDE 30 mmol/L (22-29); CHLORIDE 102 mmol/L (98-107); CREATININE 0.88 mg/dL (0.60-1.30); GLUCOSE,RANDOM 85 mg/dL (70-110); POTASSIUM 3.3 mmol/L (3.5-5.1); SODIUM SERUM 138 mmol/L (136-145); UREA NITROGEN, BLOOD 14 mg/dL (7-18)
[2022-03-19 02:00] LABS: CALCIUM, TOTAL 8.3 mg/dL (8.8-10.5)
[2022-03-19 02:01] LABS: GLOMERULAR FILTR. RATE CALC > 60 mL/min (>60)
[2022-03-19 02:05] LABS: ALANINE AMINOTRANSFERASE 20 U/L (12-78); ALBUMIN 3.3 g/dL (3.4-5.0); ALKALINE PHOSPHATASE 83 U/L (46-116); ASPARTATE AMINOTRANSFERASE 16 U/L (15-37); BILIRUBIN,TOTAL 0.2 mg/dL (0.1-1.0); TOTAL PROTEIN, SERUM 7.4 g/dL (6.4-8.2)
[2022-03-19] MEDS ORDERED: OLANZapine 5 MG RAPDIS TABLET PO ONE (02:15)
[2022-03-19 02:43] LABS: COVID AG,FIA SOURCE NASAL SWAB
[2022-03-19] MEDS ORDERED: LORazepam 2 MG TABLET PO PRN (02:45)
[2022-03-19] MEDS ORDERED: OLANZapine 5 MG RAPDIS TABLET PO PRN (02:45)
[2022-03-19] MEDS ORDERED: ZOLPIDEM TARTRATE 10 MG TABLET PO PRN (02:45)
[2022-03-19 10:52] VITALS: BP 124/80
[2022-03-19] MEDS: NICOTINE 21 MG/24 HOUR PATCH TD SCH (15:52)
[2022-03-20 08:00] VITALS: BP 121/82
[2022-03-20] MEDS: OLANZapine 5 MG TABLET PO SCH ×2 (08:15→16:20)
[2022-03-20] MEDS: NICOTINE 21 MG/24 HOUR PATCH TD SCH (08:15)
[2022-03-20 16:10] VITALS: BP 115/89
[2022-03-20] MEDS: MIRTAZAPINE 15 MG TABLET PO SCH (20:56)
[2022-03-21] MEDS: OLANZapine 5 MG TABLET PO SCH ×2 (08:17→16:30)
[2022-03-21] MEDS: NICOTINE 21 MG/24 HOUR PATCH TD SCH (08:17)
[2022-03-21 09:13] VITALS: BP 132/94
[2022-03-21] MEDS ORDERED: HydrOXYzine PAMOATE 50 MG CAPSULE PO PRN (11:45)
[2022-03-21] MEDS ORDERED: MAG HYDROX/AL HYDROX/SIMETH ES 30 ML SUSPENSION UDCUP PO PRN (11:45)
[2022-03-21] MEDS ORDERED: MAGNESIUM HYDROXIDE SUSPENSION 30 ML UDCUP PO PRN (11:45)
[2022-03-21] MEDS ORDERED: PROMETHAZINE HCL 25 MG TABLET PO PRN (11:45)
[2022-03-21] MEDS ORDERED: GuaiFENesin/D-METHORPHAN [SUGAR-FREE] 200-20MG/10 ML SYRUP UDCUP PO PRN (11:45)
[2022-03-21] MEDS ORDERED: LOPERAMIDE HCL 2 MG CAPSULE PO PRN (11:45)
[2022-03-21] MEDS ORDERED: ACETAMINOPHEN 325 MG TABLET PO PRN (11:45)
[2022-03-21 16:00] VITALS: BP 119/78
[2022-03-21 16:24] VITALS: BP 119/78
[2022-03-21] MEDS: THIAMINE 100 MG TABLET PO SCH (16:30)
[2022-03-21] MEDS ORDERED: MELA5TAB40 PO (18:55)
[2022-03-21] MEDS ORDERED: NALT50TA PO (18:55)
[2022-03-21] MEDS ORDERED: OLAN5TAB52 PO (18:55)
[2022-03-21] MEDS ORDERED: OMEG-135 PO (18:55)
[2022-03-21] MEDS: MIRTAZAPINE 15 MG TABLET PO SCH (20:35)
[2022-03-21] MEDS ORDERED: MELATONIN 5 MG TABLET PO SCH (21:00)
[2022-03-22] MEDS: THIAMINE 100 MG TABLET PO SCH (08:57)
[2022-03-22] MEDS: OLANZapine 5 MG TABLET PO SCH (08:57)
[2022-03-22] MEDS: NICOTINE 21 MG/24 HOUR PATCH TD SCH (08:58)
[2022-03-22] MEDS ORDERED: OMEGA-3/DHA/EPA/FISH OIL 1,000 MG CAPSULE PO SCH (09:00)
[2022-03-22] MEDS ORDERED: NALTREXONE HCL 50 MG TABLET PO SCH (09:00)
[2022-03-22] MEDS ORDERED: MULTIVITAMINS WITH MINERALS, THERAPEUTIC TABLET PO SCH (09:00)
[2022-03-22] MEDS ORDERED: FOLIC ACID 1 MG TABLET PO SCH (09:00)
== END 2022-03-22 09:48 | disposition home or self-care (01) | DRG 885 ==
LOC: EMS 00:53 → 3EX 06:52
PROVIDERS: ADMIT Psychiatry & Neurology Psychiatry; ATTEND Psychiatry & Neurology Psychiatry
DX: F25.9 Schizoaffective disorder, unspecified (principal); R45.851 Suicidal ideations; F41.9 Anxiety disorder, unspecified; Z20.822 Contact with and (suspected) exposure to COVID-19; Z55.9 Problems related to education and literacy, unspecified; Z59.9 Problem related to housing and economic circumstances, unspecified; Z65.3 Problems related to other legal circumstances; Z87.891 Personal history of nicotine dependence; Z91.14 Patient's other noncompliance with medication regimen; Z91.19 Patient's noncompliance with other medical treatment and regimen; Z88.8 Allergy status to other drugs, medicaments and biological substances
CPT/HCPCS: 80053; 85025; 87081; 99285; G0378; G0480; Q9967

== ENCOUNTER 2022-09-01 00:13 | Inpatient (IN) | payer MEDICARE, MEDICAID ==
[~2022-09-01] VITALS: Ht 175.3 cm; Wt 75.7 kg
[~2022-09-01 00:13] MED LIST changes: -OLAN10 PO; +OLAN5TAB52 PO
[2022-09-01 02:00] LABS: GLUCOMETER DEV NAME(LOC) POC.BV
[2022-09-01] MEDS: HALOPERIDOL 5 MG TABLET PO PRN (03:55)
[2022-09-01] MEDS: LORazepam 2 MG TABLET PO PRN (03:55)
[2022-09-01 04:37] VITALS: BP 118/72
[2022-09-01 09:41] VITALS: BP 122/78
[2022-09-01] MEDS ORDERED: BENZOCAINE/MENTHOL LOZENGE PO PRN (21:30)
[2022-09-01] MEDS ORDERED: DOCUSATE SODIUM 100 MG CAPSULE PO PRN (21:30)
[2022-09-01] MEDS ORDERED: PETROLATUM,WHITE 28 GM JELLY TP PRN (21:30)
[2022-09-01] MEDS ORDERED: CloNIDine HCL 0.1 MG TABLET PO PRN (21:30)
[2022-09-01] MEDS ORDERED: ACETAMINOPHEN 325 MG TABLET PO PRN (21:30)
[2022-09-01] MEDS ORDERED: OMEPRAZOLE 20 MG CAPSULE PO PRN (21:30)
[2022-09-01] MEDS ORDERED: MAGNESIUM HYDROXIDE SUSPENSION 30 ML UDCUP PO PRN (21:30)
[2022-09-01] MEDS ORDERED: MAG HYDROX/AL HYDROX/SIMETH ES 30 ML SUSPENSION UDCUP PO PRN (21:30)
[2022-09-01] MEDS ORDERED: ALBUTEROL SULFATE HFA 90 MCG/PUFF 8 GM INHALER IH PRN (21:30)
[2022-09-01] MEDS ORDERED: IBUPROFEN 600 MG TABLET PO PRN (21:30)
[2022-09-01] MEDS ORDERED: BACITRACIN 28 GM OINTMENT TP PRN (21:30)
[2022-09-01] MEDS ORDERED: ONDANSETRON HCL 4 MG TABLET PO PRN (21:30)
[2022-09-01] MEDS ORDERED: LOPERAMIDE HCL 2 MG CAPSULE PO PRN (21:30)
[2022-09-02 08:38] VITALS: BP 127/82
[2022-09-02] MEDS: OMEGA-3/DHA/EPA/FISH OIL 1,000 MG CAPSULE PO SCH (09:02)
[2022-09-02] MEDS: LORazepam 2 MG TABLET PO PRN (11:04)
[2022-09-02] MEDS: THIAMINE 100 MG TABLET PO SCH (15:52)
[2022-09-02] MEDS: MULTIVITAMINS WITH MINERALS, THERAPEUTIC TABLET PO SCH (15:52)
[2022-09-02 20:05] VITALS: BP 115/62
[2022-09-03 07:13] LABS: BASOPHILS % (AUTO) 0.7 % (0.0-2.0); EOSINOPHILS % (AUTO) 2.3 % (1.0-6.0); HEMATOCRIT 42.4 % (41-53); HEMOGLOBIN 14.1 g/dL (13.5-17.5); LYMPHOCYTES # (AUTO) 1.2 K/uL (1.0-4.8); LYMPHOCYTES % (AUTO) 17.6 % (22.0-44.0); MEAN CORPUSCULAR HEMOGLOBIN 31.9 pg (26.0-34.0); MEAN CORPUSCULAR HGB CONC 33.3 G/dL (31.0-37.0); MEAN CORPUSCULAR VOLUME 96 fL (80-100); MONOCYTES # (AUTO) 0.4 K/uL (0.1-1.0); MONOCYTES % (AUTO) 6.4 % (2.0-9.0); PLATELET COUNT (AUTO) 248 K/uL (150-450); RED BLOOD CELL COUNT(AUTO) 4.43 MIL/uL (4.50-5.90); RED CELL DISTRIBUTION WIDTH 13.6 % (11.5-14.5)
[2022-09-03 07:22] LABS: HEMOGLOBIN A1C 5.5 % (3.8-5.6)
[2022-09-03 07:57] LABS: ALANINE AMINOTRANSFERASE 17 U/L (12-78); ALBUMIN 3.7 g/dL (3.4-5.0); ALKALINE PHOSPHATASE 82 U/L (46-116); ANION GAP 7 mmol/L (8-16); ASPARTATE AMINOTRANSFERASE 16 U/L (15-37); BILIRUBIN,TOTAL 0.2 mg/dL (0.1-1.0); CALCIUM, TOTAL 8.8 mg/dL (8.8-10.5); CARBON DIOXIDE 29 mmol/L (22-29); CHLORIDE 103 mmol/L (98-107); CHOL/HDL RATIO 2.1 (4.2-7.3); CHOLESTEROL 131 mg/dL (131-200); CREATININE 0.87 mg/dL (0.60-1.30); GLUCOSE,RANDOM 66 mg/dL (70-110); HDL CHOLESTEROL 61 mg/dL (40-60); LDL CHOL (CALC.) 54 mg/dL (0-130); PHOSPHORUS 3.1 mg/dL (2.5-4.9); POTASSIUM 4.2 mmol/L (3.5-5.1); SODIUM SERUM 139 mmol/L (136-145); TOTAL PROTEIN, SERUM 8.1 g/dL (6.4-8.2); TRIGLYCERIDES 82 mg/dL (15-150); UREA NITROGEN, BLOOD 13 mg/dL (7-18)
[2022-09-03 07:58] LABS: GLOMERULAR FILTR. RATE CALC > 60 mL/min (>60)
[2022-09-03] MEDS: OMEGA-3/DHA/EPA/FISH OIL 1,000 MG CAPSULE PO SCH (08:14)
[2022-09-03] MEDS: THIAMINE 100 MG TABLET PO SCH (08:14)
[2022-09-03] MEDS: MULTIVITAMINS WITH MINERALS, THERAPEUTIC TABLET PO SCH (08:14)
[2022-09-03 08:38] VITALS: BP 104/73
[2022-09-03] MEDS: HALOPERIDOL 5 MG TABLET PO PRN ×2 (08:58→18:49)
[2022-09-03] MEDS: LORazepam 2 MG TABLET PO PRN ×2 (08:58→18:49)
[2022-09-03 09:06] LABS: FREE T4 (FREE THYROXINE) 0.83 ng/dL (0.76-1.46); THYROID STIMULATING HORMONE 1.11 uIU/mL (0.36-3.74)
[2022-09-03 20:24] VITALS: BP_SYST 101; BP_SYST 118; BP_DIAS 61; BP_DIAS 68
[2022-09-03] MEDS: OLANZapine 10 MG TABLET PO SCH (21:11)
[2022-09-04 08:32] VITALS: BP 121/74
[2022-09-04] MEDS: THIAMINE 100 MG TABLET PO SCH (08:35)
[2022-09-04] MEDS: MULTIVITAMINS WITH MINERALS, THERAPEUTIC TABLET PO SCH (08:35)
[2022-09-04] MEDS: OMEGA-3/DHA/EPA/FISH OIL 1,000 MG CAPSULE PO SCH (08:35)
[2022-09-04] MEDS: LORazepam 2 MG TABLET PO PRN (13:52)
[2022-09-04] MEDS: HALOPERIDOL 5 MG TABLET PO PRN (13:52)
[2022-09-04] MEDS: OLANZapine 10 MG TABLET PO SCH (20:32)
[2022-09-04 20:52] VITALS: BP 120/76
[2022-09-05 09:25] VITALS: BP 114/73
[2022-09-05] MEDS: OMEGA-3/DHA/EPA/FISH OIL 1,000 MG CAPSULE PO SCH (09:32)
[2022-09-05] MEDS: MULTIVITAMINS WITH MINERALS, THERAPEUTIC TABLET PO SCH (09:32)
[2022-09-05] MEDS: THIAMINE 100 MG TABLET PO SCH (09:32)
[2022-09-05] MEDS: LORazepam 2 MG TABLET PO PRN (14:12)
[2022-09-05] MEDS: HALOPERIDOL 5 MG TABLET PO PRN (17:08)
[2022-09-05 20:08] VITALS: BP 107/71
[2022-09-05] MEDS: OLANZapine 10 MG TABLET PO SCH (20:32)
[2022-09-06] MEDS: OMEGA-3/DHA/EPA/FISH OIL 1,000 MG CAPSULE PO SCH (08:42)
[2022-09-06] MEDS: MULTIVITAMINS WITH MINERALS, THERAPEUTIC TABLET PO SCH (08:42)
[2022-09-06] MEDS: THIAMINE 100 MG TABLET PO SCH (08:42)
[2022-09-06 09:26] VITALS: BP 104/60
[2022-09-06] MEDS: LORazepam 2 MG TABLET PO PRN ×2 (10:13→16:20)
[2022-09-06] MEDS ORDERED: NICOTINE 21 MG/24 HOUR PATCH TD PRN (14:00)
[2022-09-06] MEDS: HALOPERIDOL 5 MG TABLET PO PRN (16:20)
[2022-09-06 20:13] VITALS: BP 108/67
[2022-09-06] MEDS: OLANZapine 10 MG TABLET PO SCH (21:28)
[2022-09-07 01:43] LABS: GLUCOMETER DEV NAME(LOC) POC.BV
[2022-09-07 08:25] VITALS: BP 106/70
[2022-09-07] MEDS: THIAMINE 100 MG TABLET PO SCH (08:26)
[2022-09-07] MEDS: LORazepam 2 MG TABLET PO PRN ×2 (08:26→22:14)
[2022-09-07] MEDS: OMEGA-3/DHA/EPA/FISH OIL 1,000 MG CAPSULE PO SCH (08:26)
[2022-09-07] MEDS: MULTIVITAMINS WITH MINERALS, THERAPEUTIC TABLET PO SCH (08:26)
[2022-09-07 20:06] VITALS: BP 118/80
[2022-09-07] MEDS: OLANZapine 10 MG TABLET PO SCH (20:33)
[2022-09-08] MEDS: LORazepam 2 MG TABLET PO PRN ×2 (07:15→11:33)
[2022-09-08] MEDS: HALOPERIDOL 5 MG TABLET PO PRN ×2 (07:15→11:33)
[2022-09-08] MEDS: OMEGA-3/DHA/EPA/FISH OIL 1,000 MG CAPSULE PO SCH (08:30)
[2022-09-08] MEDS: THIAMINE 100 MG TABLET PO SCH (08:30)
[2022-09-08] MEDS: MULTIVITAMINS WITH MINERALS, THERAPEUTIC TABLET PO SCH (08:30)
[2022-09-08 08:51] VITALS: BP 145/80
[2022-09-08] MEDS: OLANZapine 10 MG TABLET PO SCH (20:30)
[2022-09-08 20:44] VITALS: BP 121/72
[2022-09-09 08:08] VITALS: BP 114/69
[2022-09-09] MEDS: MULTIVITAMINS WITH MINERALS, THERAPEUTIC TABLET PO SCH (08:16)
[2022-09-09] MEDS: THIAMINE 100 MG TABLET PO SCH (08:16)
[2022-09-09] MEDS: OMEGA-3/DHA/EPA/FISH OIL 1,000 MG CAPSULE PO SCH (08:16)
[2022-09-09] MEDS: LORazepam 2 MG TABLET PO PRN (08:17)
[2022-09-09] MEDS: HALOPERIDOL 5 MG TABLET PO PRN (08:17)
[2022-09-09] MEDS ORDERED: OLAN10TA74 PO (11:42)
== END 2022-09-09 15:55 | disposition home or self-care (01) | DRG 885 ==
LOC: B2X 02:18
PROVIDERS: ADMIT Psychiatry & Neurology Psychiatry; ATTEND Psychiatry & Neurology Psychiatry
DX: F20.9 Schizophrenia, unspecified (principal); E44.1 Mild protein-calorie malnutrition; R45.851 Suicidal ideations; Z20.822 Contact with and (suspected) exposure to COVID-19; F10.90 Alcohol use, unspecified, uncomplicated; F17.200 Nicotine dependence, unspecified, uncomplicated; F41.9 Anxiety disorder, unspecified; G47.00 Insomnia, unspecified; J44.9 Chronic obstructive pulmonary disease, unspecified; K21.9 Gastro-esophageal reflux disease without esophagitis; Z68.24 Body mass index [BMI] 24.0-24.9, adult; Z56.0 Unemployment, unspecified; Z59.00 Homelessness unspecified; Z71.6 Tobacco abuse counseling; Z71.41 Alcohol abuse counseling and surveillance of alcoholic; Z88.8 Allergy status to other drugs, medicaments and biological substances
CPT/HCPCS: 80053; 80061; 83036; 83735; 84100; 84439; 84443; 85025

== ENCOUNTER 2022-12-10 17:58 | Inpatient (IN) | payer MEDICARE, MEDICAID ==
[~2022-12-10] VITALS: Ht 188 cm; Wt 76.8 kg
[~2022-12-10 17:58] MED LIST changes: -MELA5TAB40 PO; -NALT50TA PO; +OLAN10TA74 PO; -OLAN5TAB52 PO; -OMEG-135 PO
[2022-12-10] MEDS ORDERED: HALOPERIDOL 5 MG TABLET PO PRN (18:30)
[2022-12-10] MEDS ORDERED: ZOLPIDEM TARTRATE 10 MG TABLET PO PRN (18:30)
[2022-12-10] MEDS ORDERED: LORazepam 2 MG TABLET PO PRN (18:30)
[2022-12-10 19:40] VITALS: BP 115/68
[2022-12-11] MEDS ORDERED: LOPERAMIDE HCL 2 MG CAPSULE PO PRN (06:30)
[2022-12-11] MEDS ORDERED: CloNIDine HCL 0.1 MG TABLET PO PRN (06:30)
[2022-12-11] MEDS ORDERED: ONDANSETRON HCL 4 MG TABLET PO PRN (06:30)
[2022-12-11] MEDS ORDERED: ACETAMINOPHEN 325 MG TABLET PO PRN (06:30)
[2022-12-11] MEDS ORDERED: MAG HYDROX/AL HYDROX/SIMETH ES 30 ML SUSPENSION UDCUP PO PRN (06:30)
[2022-12-11] MEDS ORDERED: BACITRACIN 28 GM OINTMENT TP PRN (06:30)
[2022-12-11] MEDS ORDERED: MAGNESIUM HYDROXIDE SUSPENSION 30 ML UDCUP PO PRN (06:30)
[2022-12-11] MEDS ORDERED: DOCUSATE SODIUM 100 MG CAPSULE PO PRN (06:30)
[2022-12-11] MEDS ORDERED: OMEPRAZOLE 20 MG CAPSULE PO PRN (06:30)
[2022-12-11] MEDS ORDERED: PETROLATUM,WHITE 28 GM JELLY TP PRN (06:30)
[2022-12-11] MEDS ORDERED: ALBUTEROL SULFATE HFA 90 MCG/PUFF 8 GM INHALER IH PRN (06:30)
[2022-12-11] MEDS ORDERED: IBUPROFEN 600 MG TABLET PO PRN (06:30)
[2022-12-11 07:17] LABS: BASOPHILS % (AUTO) 0.5 % (0.0-2.0); HEMATOCRIT 41.4 % (41-53); HEMOGLOBIN 14.1 g/dL (13.5-17.5); LYMPHOCYTES # (AUTO) 1.6 K/uL (1.0-4.8); LYMPHOCYTES % (AUTO) 24.3 % (22.0-44.0); MEAN CORPUSCULAR HEMOGLOBIN 32.4 pg (26.0-34.0); MEAN CORPUSCULAR HGB CONC 34.1 G/dL (31.0-37.0); MEAN CORPUSCULAR VOLUME 95 fL (80-100); MONOCYTES # (AUTO) 0.5 K/uL (0.1-1.0); MONOCYTES % (AUTO) 7.4 % (2.0-9.0); NEUTROPHILS # (AUTO) 4.1 K/uL (1.8-7.7); NEUTROPHILS % (AUTO) 64.8 % (40.0-70.0); PLATELET COUNT (AUTO) 243 K/uL (150-450); RED BLOOD CELL COUNT(AUTO) 4.36 MIL/uL (4.50-5.90)
[2022-12-11 07:25] LABS: HEMOGLOBIN A1C 5.5 % (3.8-5.6)
[2022-12-11 07:44] LABS: CARBON DIOXIDE 27 mmol/L (22-29); CHLORIDE 106 mmol/L (98-107); POTASSIUM 4.1 mmol/L (3.5-5.1); SODIUM SERUM 140 mmol/L (136-145)
[2022-12-11 07:45] LABS: ALANINE AMINOTRANSFERASE 16 U/L (12-78); ALBUMIN 3.6 g/dL (3.4-5.0); ALKALINE PHOSPHATASE 60 U/L (46-116); ANION GAP 7 mmol/L (8-16); ASPARTATE AMINOTRANSFERASE 14 U/L (15-37); BILIRUBIN,TOTAL 0.3 mg/dL (0.1-1.0); CALCIUM, TOTAL 8.9 mg/dL (8.8-10.5); CHOL/HDL RATIO 2.4 (4.2-7.3); CHOLESTEROL 122 mg/dL (131-200); FREE T4 (FREE THYROXINE) 0.96 ng/dL (0.76-1.46); GLOMERULAR FILTR. RATE CALC > 60 mL/min (>60); GLUCOSE,RANDOM 88 mg/dL (70-110); HDL CHOLESTEROL 51 mg/dL (40-60); LDL CHOL (CALC.) 55 mg/dL (0-130); THYROID STIMULATING HORMONE 1.38 uIU/mL (0.36-3.74); TOTAL PROTEIN, SERUM 6.9 g/dL (6.4-8.2); TRIGLYCERIDES 81 mg/dL (15-150)
[2022-12-11 09:05] VITALS: BP 113/70
[2022-12-11 18:41] LABS: GLUCOMETER DEV NAME(LOC) POC.BV
[2022-12-11] MEDS: OLANZapine 7.5 MG TABLET PO SCH (21:00)
[2022-12-11] MEDS ORDERED: OLANZapine 10 MG TABLET PO SCH (21:00)
[2022-12-11 23:04] VITALS: BP 116/65
[2022-12-12 08:03] VITALS: BP 114/68
[2022-12-12] MEDS: NICOTINE 21 MG/24 HOUR PATCH TD PRN (11:09)
[2022-12-12 20:06] VITALS: BP 116/80
[2022-12-12] MEDS: OLANZapine 7.5 MG TABLET PO SCH (20:27)
[2022-12-13 08:10] VITALS: BP 119/64
[2022-12-13] MEDS: NICOTINE 21 MG/24 HOUR PATCH TD PRN (17:02)
[2022-12-13 20:07] VITALS: BP 114/89
[2022-12-13] MEDS: OLANZapine 7.5 MG TABLET PO SCH (20:31)
[2022-12-14] MEDS: NICOTINE 21 MG/24 HOUR PATCH TD PRN (08:13)
[2022-12-14 08:48] VITALS: BP 131/68
[2022-12-14 20:09] VITALS: BP 106/74
[2022-12-14] MEDS: OLANZapine 7.5 MG TABLET PO SCH (20:09)
[2022-12-15 08:02] VITALS: BP 110/70
[2022-12-15] MEDS: NICOTINE 21 MG/24 HOUR PATCH TD PRN (08:07)
[2022-12-15 20:42] VITALS: BP 109/70
[2022-12-15] MEDS: OLANZapine 7.5 MG TABLET PO SCH (20:42)
[2022-12-16 08:18] VITALS: BP 108/64
[2022-12-16] MEDS: NICOTINE 21 MG/24 HOUR PATCH TD PRN (09:12)
[2022-12-16] MEDS ORDERED: OLAN7.5T22 PO (12:44)
== END 2022-12-16 15:00 | disposition home or self-care (01) | DRG 885 ==
LOC: B2X 19:08
PROVIDERS: ADMIT Psychiatry & Neurology Psychiatry; ATTEND Psychiatry & Neurology Psychiatry
DX: F20.9 Schizophrenia, unspecified (principal); R45.851 Suicidal ideations; E44.1 Mild protein-calorie malnutrition; F17.200 Nicotine dependence, unspecified, uncomplicated; J44.9 Chronic obstructive pulmonary disease, unspecified; G47.00 Insomnia, unspecified; F10.90 Alcohol use, unspecified, uncomplicated; F41.9 Anxiety disorder, unspecified; K21.9 Gastro-esophageal reflux disease without esophagitis; Z20.822 Contact with and (suspected) exposure to COVID-19; Z68.27 Body mass index [BMI] 27.0-27.9, adult; Z88.8 Allergy status to other drugs, medicaments and biological substances
CPT/HCPCS: 80053; 80061; 83036; 84439; 84443; 85025

== ENCOUNTER 2022-12-25 18:03 | Inpatient (IN) | payer MEDICARE, MEDICAID ==
[~2022-12-25] VITALS: Ht 188 cm; Wt 79.4 kg
[~2022-12-25 18:03] MED LIST changes: -OLAN10TA74 PO; +OLAN7.5T22 PO
[2022-12-25 20:10] VITALS: BP 120/70
[2022-12-25] MEDS ORDERED: HALOPERIDOL 5 MG TABLET PO PRN (20:15)
[2022-12-26 08:05] VITALS: BP 117/65
[2022-12-26 16:52] VITALS: BP 126/79
[2022-12-26] MEDS ORDERED: MAG HYDROX/AL HYDROX/SIMETH ES 30 ML SUSPENSION UDCUP PO PRN (18:45)
[2022-12-26] MEDS ORDERED: BACITRACIN 28 GM OINTMENT TP PRN (18:45)
[2022-12-26] MEDS ORDERED: IBUPROFEN 600 MG TABLET PO PRN (18:45)
[2022-12-26] MEDS ORDERED: CloNIDine HCL 0.1 MG TABLET PO PRN (18:45)
[2022-12-26] MEDS ORDERED: LOPERAMIDE HCL 2 MG CAPSULE PO PRN (18:45)
[2022-12-26] MEDS ORDERED: ONDANSETRON HCL 4 MG TABLET PO PRN (18:45)
[2022-12-26] MEDS ORDERED: ACETAMINOPHEN 325 MG TABLET PO PRN (18:45)
[2022-12-26] MEDS ORDERED: MAGNESIUM HYDROXIDE SUSPENSION 30 ML UDCUP PO PRN (18:45)
[2022-12-26] MEDS ORDERED: PETROLATUM,WHITE 28 GM JELLY TP PRN (18:45)
[2022-12-26] MEDS ORDERED: ALBUTEROL SULFATE HFA 90 MCG/PUFF 8 GM INHALER IH PRN (18:45)
[2022-12-26] MEDS ORDERED: DOCUSATE SODIUM 100 MG CAPSULE PO PRN (18:45)
[2022-12-26] MEDS ORDERED: OMEPRAZOLE 20 MG CAPSULE PO PRN (18:45)
[2022-12-27] MEDS: NICOTINE 21 MG/24 HOUR PATCH TD SCH (09:45)
[2022-12-27] MEDS: ZOLPIDEM TARTRATE 10 MG TABLET PO PRN (20:48)
[2022-12-28] MEDS: NICOTINE 21 MG/24 HOUR PATCH TD SCH (08:52)
[2022-12-28 16:04] VITALS: BP 110/77
[2022-12-28] MEDS: OLANZapine 7.5 MG TABLET PO SCH ×2 (21:00→21:03)
[2022-12-29 00:25] VITALS: BP 104/63
[2022-12-29] MEDS: NICOTINE 21 MG/24 HOUR PATCH TD SCH (08:11)
[2022-12-29 09:00] VITALS: BP 113/68
[2022-12-29 16:23] VITALS: BP 107/64
[2022-12-29] MEDS: OLANZapine 7.5 MG TABLET PO SCH (21:00)
[2022-12-29] MEDS: ZOLPIDEM TARTRATE 10 MG TABLET PO PRN (23:51)
[2022-12-30 00:29] VITALS: BP 107/64
[2022-12-30 08:27] VITALS: BP 124/82
[2022-12-30] MEDS: NICOTINE 21 MG/24 HOUR PATCH TD SCH (08:31)
[2022-12-30 16:22] VITALS: BP 111/76
[2022-12-30] MEDS: OLANZapine 7.5 MG TABLET PO SCH (20:02)
[2022-12-31 00:11] VITALS: BP 117/74
[2022-12-31 08:57] VITALS: BP 116/76
[2022-12-31] MEDS: NICOTINE 21 MG/24 HOUR PATCH TD SCH (09:03)
[2022-12-31 16:02] VITALS: BP 115/78
[2022-12-31] MEDS: OLANZapine 7.5 MG TABLET PO SCH (20:18)
[2022-12-31] MEDS: ZOLPIDEM TARTRATE 10 MG TABLET PO PRN (23:19)
[2022-12-31] MEDS: LORazepam 2 MG TABLET PO PRN (23:19)
[2023-01-01 00:10] VITALS: BP 110/74
[2023-01-01 06:21] LABS: EOSINOPHILS % (AUTO) 3.5 % (1.0-6.0); HEMATOCRIT 40.8 % (41-53); HEMOGLOBIN 13.8 g/dL (13.5-17.5); LYMPHOCYTES # (AUTO) 1.7 K/uL (1.0-4.8); LYMPHOCYTES % (AUTO) 31.9 % (22.0-44.0); MEAN CORPUSCULAR HEMOGLOBIN 32.3 pg (26.0-34.0); MEAN CORPUSCULAR VOLUME 95 fL (80-100); MONOCYTES # (AUTO) 0.5 K/uL (0.1-1.0); MONOCYTES % (AUTO) 9.8 % (2.0-9.0); NEUTROPHILS # (AUTO) 2.9 K/uL (1.8-7.7); NEUTROPHILS % (AUTO) 53.8 % (40.0-70.0); PLATELET COUNT (AUTO) 208 K/uL (150-450); RED BLOOD CELL COUNT(AUTO) 4.29 MIL/uL (4.50-5.90); RED CELL DISTRIBUTION WIDTH 14.1 % (11.5-14.5)
[2023-01-01 08:11] VITALS: BP 121/68
[2023-01-01] MEDS: NICOTINE 21 MG/24 HOUR PATCH TD SCH (08:21)
[2023-01-01 16:26] VITALS: BP 131/85
[2023-01-01] MEDS: OLANZapine 7.5 MG TABLET PO SCH (20:15)
[2023-01-01] MEDS: ZOLPIDEM TARTRATE 10 MG TABLET PO PRN (20:15)
[2023-01-02 08:48] VITALS: BP 128/80
[2023-01-02] MEDS: NICOTINE 21 MG/24 HOUR PATCH TD SCH (09:37)
[2023-01-02 20:10] VITALS: BP 107/58
[2023-01-02] MEDS: LORazepam 2 MG TABLET PO PRN (21:24)
[2023-01-02] MEDS: ZOLPIDEM TARTRATE 10 MG TABLET PO PRN (21:24)
[2023-01-02] MEDS: OLANZapine 7.5 MG TABLET PO SCH (22:35)
[2023-01-03 08:29] VITALS: BP 109/68
[2023-01-03] MEDS: NICOTINE 21 MG/24 HOUR PATCH TD SCH (08:39)
[2023-01-03] MEDS ORDERED: PALIPERIDONE PALMITATE 234 MG/1.5 ML SYRINGE IM ONE (16:00)
[2023-01-03 20:12] VITALS: BP 105/68
[2023-01-03] MEDS: OLANZapine 7.5 MG TABLET PO SCH (20:35)
[2023-01-04 08:32] VITALS: BP 115/68
[2023-01-04] MEDS: NICOTINE 21 MG/24 HOUR PATCH TD SCH (08:34)
[2023-01-04 20:09] VITALS: BP 132/65
[2023-01-04] MEDS: OLANZapine 7.5 MG TABLET PO SCH (20:27)
[2023-01-05 08:13] VITALS: BP 130/69
[2023-01-05] MEDS: NICOTINE 21 MG/24 HOUR PATCH TD SCH (09:32)
[2023-01-05 19:41] LABS: GLUCOMETER DEV NAME(LOC) POC.BV
[2023-01-05 20:09] VITALS: BP 112/72
[2023-01-05] MEDS: OLANZapine 7.5 MG TABLET PO SCH (20:30)
[2023-01-06 08:37] VITALS: BP 126/71
[2023-01-31] MEDS ORDERED: PALIPERIDONE PALMITATE 156 MG/ML SYRINGE IM SCH (09:00)
== END 2023-01-06 08:20 | disposition home or self-care (01) | DRG 885 ==
LOC: B2X 20:12
PROVIDERS: ADMIT Psychiatry & Neurology Psychiatry; ATTEND Psychiatry & Neurology Psychiatry
DX: F20.9 Schizophrenia, unspecified (principal); E44.1 Mild protein-calorie malnutrition; R45.851 Suicidal ideations; Z20.822 Contact with and (suspected) exposure to COVID-19; F10.90 Alcohol use, unspecified, uncomplicated; F17.200 Nicotine dependence, unspecified, uncomplicated; F41.9 Anxiety disorder, unspecified; G47.00 Insomnia, unspecified; J44.9 Chronic obstructive pulmonary disease, unspecified; K21.9 Gastro-esophageal reflux disease without esophagitis; Z68.22 Body mass index [BMI] 22.0-22.9, adult; Z56.0 Unemployment, unspecified; Z59.00 Homelessness unspecified; Z71.6 Tobacco abuse counseling; Z71.41 Alcohol abuse counseling and surveillance of alcoholic
CPT/HCPCS: 85025; 87081

== ENCOUNTER 2023-04-01 15:57 | Emergency (ER) | payer MEDICARE, OTHER ==
[~2023-04-01] VITALS: Ht 188 cm; Wt 83.6 kg
[2023-04-01] MEDS ORDERED: PALI39DI IM (16:09)
[2023-04-01 16:11] VITALS: TEMP 98
[2023-04-01] MEDS ORDERED: DIVA500T53 PO (17:28)
[2023-04-01] MEDS ORDERED: LORazepam 2 MG TABLET PO ONE (17:30)
[2023-04-01] MEDS ORDERED: DIVALPROEX SODIUM 500 MG ER TABLET PO ONE (17:30)
[2023-04-01 18:00] VITALS: BP 134/71; PULSE 64; RESP 17
== END 2023-04-01 18:37 | disposition home or self-care (01) ==
LOC: EMS 16:04
DX: F25.9 Schizoaffective disorder, unspecified (principal); R45.851 Suicidal ideations; F31.9 Bipolar disorder, unspecified; F17.210 Nicotine dependence, cigarettes, uncomplicated; Z88.8 Allergy status to other drugs, medicaments and biological substances
CPT/HCPCS: 99284; Z7502; Z7610

== ENCOUNTER 2024-07-02 07:24 | Emergency (ER) | payer MEDICARE, OTHER ==
[~2024-07-02] VITALS: Ht 175.3 cm; Wt 86.4 kg
[~2024-07-02 07:24] MED LIST changes: +DIVA-153 PO; +PALI39DI IM
[2024-07-02 07:29] VITALS: TEMP 97.9
[2024-07-02] MEDS ORDERED: OLAN10TA74 PO (07:31)
[2024-07-02] MEDS ORDERED: DIVA-85 PO (07:31)
[2024-07-02] MEDS ORDERED: AMOX-457 PO (08:12)
[2024-07-02] MEDS: AMOX TR/POT CLAV 875 MG/125 MG TABLET PO ONE (08:29)
[2024-07-02 09:36] VITALS: BP 111/81; PULSE 92; RESP 18; O2SAT 97
== END 2024-07-02 09:38 | disposition home or self-care (01) ==
LOC: EMS 07:24
DX: K04.7 Periapical abscess without sinus (principal); K02.9 Dental caries, unspecified; F20.9 Schizophrenia, unspecified; F31.9 Bipolar disorder, unspecified; F17.210 Nicotine dependence, cigarettes, uncomplicated
CPT/HCPCS: 99283

== ENCOUNTER 2024-07-12 08:28 | Emergency (ER) | payer MEDICARE, OTHER ==
[~2024-07-12] VITALS: Ht 188 cm; Wt 93.2 kg
[~2024-07-12 08:28] MED LIST changes: +AMOX-457 PO; -DIVA-153 PO; +DIVA-85 PO; +OLAN10TA74 PO; -OLAN7.5T22 PO; -PALI39DI IM
[2024-07-12 08:38] VITALS: BP 126/80; PULSE 104; RESP 16; TEMP 98.3; O2SAT 98
== END 2024-07-12 10:20 | disposition home or self-care (01) ==
LOC: EMS 08:31
DX: K02.9 Dental caries, unspecified (principal); F25.9 Schizoaffective disorder, unspecified; F17.210 Nicotine dependence, cigarettes, uncomplicated; Z88.8 Allergy status to other drugs, medicaments and biological substances
CPT/HCPCS: 99281; Z7502

== ENCOUNTER 2025-05-26 08:18 | Emergency (ER) | payer MEDICARE, OTHER ==
[~2025-05-26] VITALS: Ht 188 cm; Wt 93.6 kg
[2025-05-26 08:23] VITALS: TEMP 98.2
[2025-05-26 08:34] VITALS: BP 128/85; PULSE 102; RESP 18; O2SAT 99
[2025-05-26] MEDS ORDERED: CEPH-558 PO (08:37)
[2025-05-26] MEDS ORDERED: DIPH50CA37 PO (08:37)
== END 2025-05-26 08:48 | disposition home or self-care (01) ==
LOC: EMS 08:23
DX: T78.40XA Allergy, unspecified, initial encounter (principal); L03.213 Periorbital cellulitis; F25.9 Schizoaffective disorder, unspecified; F31.9 Bipolar disorder, unspecified; F17.210 Nicotine dependence, cigarettes, uncomplicated; Z79.899 Other long term (current) drug therapy
CPT/HCPCS: 99283; Z7502